=== PATIENT | female | born 1950 | race Caucasian/White ===

== ENCOUNTER 2023-10-05 12:41 | Emergency (ER) | payer OTHER, SELFPAY ==
[2023-10-05] VITALS (17 sets, daily range): BP systolic 122–153; BP diastolic 58–66; PULSE 71–92; RESP 10–21; TEMP 36.6–37; O2SAT 93–100
--- NOTE | 2023-10-05 12:52 | ED_ITS ---
HPI - General Adult General Chief complaint: Weakness Stated complaint: weakness Time Seen by Provider: 10/05/23 12:50 Source: patient, EMS, RN notes reviewed and old records reviewed Mode of arrival: EMS Limitations: no limitations History of Present Illness HPI narrative: 72-year-old female history of COPD, obesity, migraine, mood disorder on an aspirin daily presents with complaint of multiple falls in the past 2 weeks, weakness and decreased appetite. Patient reportedly had several falls in the past 2 weeks unclear if these are mechanical versus other causes but medics note most recent was last night reported to be from weakness. Was witnessed and patient did not hit her head at least in the most recent fall. Patient herself can tell me her name she denies any pain. Denies headaches, no vision changes, no neck or back pain, denies any chest pain or shortness of breath. Denies any nausea or vomiting. States she has not eat in the last 4 5 days. States she has just not interested. States she has had bowel movements that has been formed, denies any black or bloody stools. Denies any urinary symptoms. States she does feel generally weak. Has difficulty lifting her right arm and leg but states this is chronic for her. Patient does indicate she uses a CPAP at night states she has been using it regularly. Reported allergy to Benadryl. Patient lives at [facility]. She had a lift assist last night but did not wish to be transported. Was transported today at the request of her physician for evaluation. Related Data Home Medications Medication Instructions Recorded Confirmed acetaminophen 300 mg-codeine 30 mg 1 - 2 tab PO Q8H PRN Pain (Scale 10/05/23 10/05/23 tablet Score 7-10) acetaminophen 500 mg capsule 1,000 mg PO Q8HR 10/05/23 10/05/23 albuterol sulfate 90 mcg/actuation 2 puff inhalation Q4-6H PRN 10/05/23 10/05/23 aerosol inhaler (ProAir HFA) Shortness Of Breath aspirin 81 mg capsule 81 mg PO DAILY 10/05/23 10/05/23 buspirone 15 mg tablet 15 mg PO BID 10/05/23 10/05/23 cholecalciferol (vitamin D3) 25 25 mcg PO QAM 10/05/23 10/05/23 mcg (1,000 unit) capsule (Vitamin D3) divalproex 500 mg tablet,delayed 1,000 mg PO BEDTIME 10/05/23 10/05/23 release divalproex 500 mg tablet,extended 500 mg PO QAM 10/05/23 10/05/23 release 24 hr ferrous gluconate 324 mg (36 mg 324 mg PO DAILY 10/05/23 10/05/23 iron) tablet gabapentin 100 mg tablet 200 mg PO BID 10/05/23 10/05/23 ibuprofen 800 mg tablet 800 mg PO Q6H PRN Pain (Scale 10/05/23 10/05/23 Score 4-6) levothyroxine 100 mcg capsule 100 mcg PO DAILY 10/05/23 10/05/23 magnesium oxide 400 mg PO DAILY 10/05/23 10/05/23 ondansetron HCl 4 mg tablet 4 mg PO Q8H PRN nausea/vomiting 10/05/23 10/05/23 tiotropium bromide 18 mcg capsule 1 cap inhalation BEDTIME 10/05/23 10/05/23 with inhalation device (Spiriva with HandiHaler) triamcinolone acetonide 0.1 % 1 applic topical BID 10/05/23 10/05/23 topical cream venlafaxine 150 mg tablet,extended 150 mg PO DAILY 10/05/23 10/05/23 release 24 hr Allergies Allergy/AdvReac Type Severity Reaction Status Date / Time diphenhydramine Allergy Unknown Verified 10/05/23 13:10 Review of Systems Review of Systems ROS Unobtainable: All systems reviewed & are unremarkable except as noted in HPI and below Patient History Medical History (Updated 10/05/23 @ 14:55 by Corin Johnson DO) MCC (current) use of aspirin Unspecified convulsions Myalgia Seasonal allergic rhinitis Hypertensive heart disease without heart failure Insomnia Migraine Anxiety disorder Unspecified mood [affective] disorder Major depressive disorder Vitamin D deficiency Vitamin B deficiency Epilepsy Bipolar disorder Morbid obesity due to excess calories Oxygen dependent COPD (chronic obstructive pulmonary disease) Social History Smoking Status: Unknown if ever smoked Exam Narrative Exam Narrative: GEN: Obese, pale elderly appearing female, alert and oriented, patient appears to be in mild distress. HEENT: Atraumatic, pupils are equal round reactive to light, extraocular movements are intact, conjunctiva pale bilaterally, nares are clear, there is no conjunctival pallor. Throat is clear without any exudates, erythema, tonsillar enlargement or uvular deviation HEART: Regular rate and rhythm without murmur, clicks, rubs. Pulses are equal in upper and lower extremities, patient has some edema bilateral lower extremities. LUNGS:Lungs clear to auscultation, no wheezes, rales, crackles, chest moves symmetrically, no tachypnea or accessory muscle use ABD:bowel sounds normal, soft, non-tender, no guarding, rebound, rigidity, no masses noted, no hepatosplenomegaly :No CVA tenderness MSCL: Non-tender, patient has a weakness on the right upper extremity and lower extremity. Patient notes she has had injuries to her right shoulder making it difficult for her to elevate. She states right lower extremity also is generally weak. NEURO:CN 2-12 intact, sensation normal. SKIN: Patient has scabs on her anterior abdomen without any signs of erythema drainage or foul odor. Initial Vital Signs Initial Vital Signs: Vital Signs Pulse Rate 74 10/05/23 12:45 Pulse Oximetry 97 10/05/23 12:45 Course Orders Ordered: ED Orders 10/05/23 12:50 CT head/brain wo con Stat XR chest 1V Stat Respiratory Panel (Film Array) Stat ABG [Arterial Blood Gas] STAT EKG-12 Lead Stat 10/05/23 12:54 CT cervical spine wo con Stat 10/05/23 13:21 Acetaminophen Stat Complete Blood Count AUTO DIFF Stat Comprehensive Metabolic Panel Stat Lactate (Lactic Acid) Stat Lipase Stat NT-proBNP (BNP-Adult 18+) Stat Procalcitonin Stat Troponin & CK Cardiac Panel Stat Valproic Acid (Depakene) Total Stat 10/05/23 13:52 Urinalysis and Microscopic Stat 10/05/23 14:05 Blood Culture Stat Vital Signs Vital signs: Vital Signs - 8 hr 10/05/23 12:45 10/05/23 12:47 10/05/23 12:47 Temperature Pulse Rate 74 81 Respiratory Rate 13 Blood Pressure 127/58 L Pulse Oximetry 97 95 Oxygen Delivery Method Oxygen Flow Rate 10/05/23 12:50 10/05/23 13:00 10/05/23 13:00 Temperature 98.6 F Pulse Rate 75 75 Respiratory Rate 10 L Blood Pressure 127/58 L 137/61 Pulse Oximetry 99 99 Oxygen Delivery Method Nasal Cannula Oxygen Flow Rate 2 2 10/05/23 14:00 10/05/23 14:09 10/05/23 14:09 Temperature Pulse Rate 71 75 Respiratory Rate 12 11 L Blood Pressure 130/58 L Pulse Oximetry 97 96 Oxygen Delivery Method Oxygen Flow Rate 10/05/23 14:30 10/05/23 14:31 10/05/23 14:31 Temperature Pulse Rate 77 77 Respiratory Rate 12 Blood Pressure 153/64 H Pulse Oximetry 100 100 Oxygen Delivery Method Oxygen Flow Rate 10/05/23 15:00 10/05/23 15:01 10/05/23 15:01 Temperature Pulse Rate 77 77 Respiratory Rate 13 Blood Pressure 143/63 H Pulse Oximetry 99 100 Oxygen Delivery Method Oxygen Flow Rate 10/05/23 15:30 10/05/23 15:31 10/05/23 15:31 Temperature Pulse Rate 87 83 Respiratory Rate 17 14 Blood Pressure 146/66 H Pulse Oximetry 93 Oxygen Delivery Method Oxygen Flow Rate 10/05/23 16:00 10/05/23 16:01 10/05/23 16:01 Temperature Pulse Rate 86 84 Respiratory Rate 13 21 Blood Pressure 141/60 H Pulse Oximetry Oxygen Delivery Method Oxygen Flow Rate 10/05/23 16:30 10/05/23 16:31 10/05/23 16:31 Temperature Pulse Rate 90 90 Respiratory Rate 13 15 Blood Pressure 122/60 Pulse Oximetry 97 98 Oxygen Delivery Method Oxygen Flow Rate 10/05/23 16:39 Temperature 98 F Pulse Rate 92 H Respiratory Rate 20 Blood Pressure 122/60 Pulse Oximetry 98 Oxygen Delivery Method Nasal Cannula Oxygen Flow Rate 2.5 Medical Decision Making Lab Data 10/05/23 13:21 10/05/23 13:21 Labs: Lab Results 10/05/23 10/05/23 10/05/23 Range/Units 12:50 13:17 13:21 WBC 8.1 (4.5-11.0) X10^3/uL RBC 4.50 (4.0-5.2) X10^6/uL Hgb 8.9 L (12.0-16.0) g/dL Hct 30.2 L (36-46) % MCV 67.0 L (80-100) fL MCH 19.8 L (26-34) PG MCHC 29.6 L (30-36) % RDW 23.6 H (11.6-14.8) % Plt Count 666 H (150-400) X10^3/uL Neut % (Auto) Not Reportable Lymph % (Auto) Not Reportable [place] % (Auto) Not Reportable Eos % (Auto) Not Reportable Baso % (Auto) Not Reportable Lymph # (Auto) Not Reportable [place] # (Auto) Not Reportable Baso # (Auto) Not Reportable Total Counted 100 Seg Neutrophils % 53.0 (38-70) % Lymphocytes % (Manual) 33.0 (25-45) % Monocytes % (Manual) 11.0 (2-11) % Eosinophils % (Manual) 3.0 (2-4) % Neutrophils # (Manual) 4293 (5471-3112) /uL RBC Morphology See below Hypochromasia 1+ H Anisocytosis 3+ H Microcytosis 2+ H ABG Sample Site Left radial ABG pH 7.35 (7.35-7.45) ABG pCO2 48.2 H (35-45) mmHg ABG pO2 91 (80-100) mmHg ABG HCO3 26 (23-27) mmol/L ABG Total CO2 27 (23-27) mmol/L ABG O2 Saturation 97 (95-100) % ABG Base Excess 0.3 (-2-3) mmol/L Noe Test Positive Sodium 140 (137-145) mmol/L Potassium 4.2 (3.4-5.1) mmol/L Chloride 104 (98-107) mmol/L Carbon Dioxide 25 (22-32) mmol/L BUN 24 H (7-17) mg/dL Creatinine 0.66 (0.52-1.04) mg/dL Estimated GFR > 60 (>60) mL/min BUN/Creatinine Ratio 36.4 H (6-22) Glucose 88 (80-110) mg/dL Lactate 0.6 L (0.7-2.1) mmol/L Calcium 8.5 (8.4-10.2) mg/dL Total Bilirubin 0.3 (0.2-1.3) mg/dL AST 21 (14-36) IU/L ALT 9 (<35) IU/L Alkaline Phosphatase 74 (38-126) U/L Total Creatine Kinase 33 (30-135) U/L Troponin I < 0.012 (0.01-0.034) ng/mL NT-Pro-B Natriuret Pep 195 H (<125) pg/mL Total Protein 5.6 L (6.3-8.2) g/dL Albumin 2.7 L (3.5-5.0) g/dL Globulin 2.9 (1.7-4.1) g/dL Albumin/Globulin Ratio 0.9 L (1.0-2.8) Lipase 22 L (23-300) U/L Procalcitonin 0.042 (<0.5) ng/mL Urine Color Urine Appearance Urine pH (4.5-8.0) Ur Specific M[place] (1.000-1.035) Urine Protein (Negative) Urine Glucose (UA) (Negative) g/dL Urine Ketones (NEGATIVE) Urine Occult Blood (Negative) Urine Nitrate (Negative) Urine Bilirubin (NEGATIVE) Urine Urobilinogen (0.2) E.U./dL Ur Leukocyte Esterase (NEGATIVE) Urine RBC (0-5/HPF) Urine WBC (0-5/HPF) Ur Squamous Epith Cells (0-5/HPF) Urine Bacteria (None) Hyaline Casts (None) Ur Culture Indicated? Vol Urine Centrifuged Acetaminophen 10 (10-30) ug/mL Chlamy pneumoniae PCR Not detected (Not Detect) Adenovirus (PCR) Not detected (Not Detect) B.parapertussis DNA PCR Not detected (Not Detecte) Coronavirus OC43 (PCR) Not detected (Not Detect) Coronavirus HKU1 (PCR) Not detected (Not Detect) Coronavirus 229E (PCR) Not detected (Not Detect) SARS-CoV-2 (PCR) Not detected (Not Detecte) Coronavirus NL63 (PCR) Not detected (Not Detect) Human Metapneumovir PCR Not detected (Not Detect) Influenza Type A (PCR) Not detected (Not Detect) Influenza Type B (PCR) Not detected (Not Detect) M. pneumoniae (PCR) Not detected (Not Detect) Parainfluenza 1 (PCR) Not detected (Not Detect) Parainfluenza 2 (PCR) Not detected (Not Detect) Parainfluenza 3 (PCR) Not detected (Not Detect) Parainfluenza 4 (PCR) Not detected (Not Detect) RSV (PCR) Not detected (Not Detect) Entero/Rhino (PCR) Not detected (Not Detect) 10/05/23 Range/Units 13:52 WBC (4.5-11.0) X10^3/uL RBC (4.0-5.2) X10^6/uL Hgb (12.0-16.0) g/dL Hct (36-46) % MCV (80-100) fL MCH (26-34) PG MCHC (30-36) % RDW (11.6-14.8) % Plt Count (150-400) X10^3/uL Neut % (Auto) Lymph % (Auto) [place] % (Auto) Eos % (Auto) Baso % (Auto) Lymph # (Auto) [place] # (Auto) Baso # (Auto) Total Counted Seg Neutrophils % (38-70) % Lymphocytes % (Manual) (25-45) % Monocytes % (Manual) (2-11) % Eosinophils % (Manual) (2-4) % Neutrophils # (Manual) (6167-4776) /uL RBC Morphology Hypochromasia Anisocytosis Microcytosis ABG Sample Site ABG pH (7.35-7.45) ABG pCO2 (35-45) mmHg ABG pO2 (80-100) mmHg ABG HCO3 (23-27) mmol/L ABG Total CO2 (23-27) mmol/L ABG O2 Saturation (95-100) % ABG Base Excess (-2-3) mmol/L Noe Test Sodium (137-145) mmol/L Potassium (3.4-5.1) mmol/L Chloride (98-107) mmol/L Carbon Dioxide (22-32) mmol/L BUN (7-17) mg/dL Creatinine (0.52-1.04) mg/dL Estimated GFR (>60) mL/min BUN/Creatinine Ratio (6-22) Glucose (80-110) mg/dL Lactate (0.7-2.1) mmol/L Calcium (8.4-10.2) mg/dL Total Bilirubin (0.2-1.3) mg/dL AST (14-36) IU/L ALT (<35) IU/L Alkaline Phosphatase (38-126) U/L Total Creatine Kinase (30-135) U/L Troponin I (0.01-0.034) ng/mL NT-Pro-B Natriuret Pep (<125) pg/mL Total Protein (6.3-8.2) g/dL Albumin (3.5-5.0) g/dL Globulin (1.7-4.1) g/dL Albumin/Globulin Ratio (1.0-2.8) Lipase (23-300) U/L Procalcitonin (<0.5) ng/mL Urine Color Yellow Urine Appearance Clear Urine pH 5.5 (4.5-8.0) Ur Specific [place] 1.020 (1.000-1.035) Urine Protein Negative (Negative) Urine Glucose (UA) Negative (Negative) g/dL Urine Ketones 1+ H (NEGATIVE) Urine Occult Blood Negative (Negative) Urine Nitrate Negative (Negative) Urine Bilirubin Negative (NEGATIVE) Urine Urobilinogen 0.2 (0.2) E.U./dL Ur Leukocyte Esterase Negative (NEGATIVE) Urine RBC 0-1/hpf (0-5/HPF) Urine WBC 0-1/hpf (0-5/HPF) Ur Squamous Epith Cells 0-1 /hpf (0-5/HPF) Urine Bacteria None seen (None) Hyaline Casts 1-5/lpf (None) Ur Culture Indicated? Cult not indicated Vol Urine Centrifuged 10ml (spun) Acetaminophen (10-30) ug/mL Chlamy pneumoniae PCR (Not Detect) Adenovirus (PCR) (Not Detect) B.parapertussis DNA PCR (Not Detecte) Coronavirus OC43 (PCR) (Not Detect) Coronavirus HKU1 (PCR) (Not Detect) Coronavirus 229E (PCR) (Not Detect) SARS-CoV-2 (PCR) (Not Detecte) Coronavirus NL63 (PCR) (Not Detect) Human Metapneumovir PCR (Not Detect) Influenza Type A (PCR) (Not Detect) Influenza Type B (PCR) (Not Detect) M. pneumoniae (PCR) (Not Detect) Parainfluenza 1 (PCR) (Not Detect) Parainfluenza 2 (PCR) (Not Detect) Parainfluenza 3 (PCR) (Not Detect) Parainfluenza 4 (PCR) (Not Detect) RSV (PCR) (Not Detect) Entero/Rhino (PCR) (Not Detect) Imaging Data Chest x-ray: Radiologist's Impression: [address] [address] XRay Report Signed Patient: Kimmie Dunn MR#: [id number] : 1950 Acct:[id number] Age/Sex: 72 / F Date of Service: 10/05/23 Loc: ED Accession Number: [id number] Procedure: XR chest 1V Ordering Provider: Corin Johnson D.O. PROCEDURE: XR CHEST 1V INDICATIONS: weakness TECHNIQUE: One view of the chest was acquired. COMPARISON: None. FINDINGS: Surgical changes and devices: Bilateral chest wall surgical clips. Lungs and pleura: Low lung volumes. Prominent interstitial markings. No pleural effusions or pneumothorax. Mediastinum: Mediastinal contours appear normal. Heart size is enlarged. Bones and chest wall: No suspicious bony lesions. Overlying soft tissues appear unremarkable. IMPRESSION: Cardiomegaly with prominent interstitial markings. Recommend correlation for pulmonary edema. Dictated by: Santosh Gonzalez M.D. on 10/05/2023 at 14:26 Approved by: Santosh Gonzalez M.D. on 10/05/2023 at 14:27 CT scan - head: Radiologist's Impression: Close Cervical Spine CT (Signed) Sher Dozier - 10/05/[address] (Signed) Brendon Arreguin - 10/05/23 Chest X-Ray (Signed) Santosh Gonzalez - 10/05/23 Launch?[place] [address] CT Scan Report Signed Patient: Kimmie Dunn MR#: [id number] : 1950 Acct:[id number] Age/Sex: 72 / F Date of Service: 10/05/23 Loc: ED Accession Number: [id number] Procedure: CT head/brain wo con Ordering Provider: Corin Johnson D.O. PROCEDURE: CT HEAD/BRAIN WO CON INDICATIONS: weakness, multiple falls in past 2 weeks. TECHNIQUE: Noncontrast 4.5 mm thick angled axial sections acquired from the foramen magnum to the vertex, with coronal and sagittal reformats. For radiation dose reduction, the following was used: automated exposure control, adjustment of mA and/or kV according to patient size. COMPARISON: None. FINDINGS: Image quality: Diagnostic. CSF spaces: Basal cisterns are patent. No extra-axial fluid collections. The ventricles are symmetric in size and shape. Brain: No intracranial bleeds or masses. There is cerebral volume loss for age, with resultant ventricular and sulcal prominence. There are periventricular and deep white matter chronic small vessel ischemic changes. There is intracranial internal carotid artery atherosclerosis. Skull and face: Calvarium and visualized facial bones appear intact, without suspicious lesions. Sinuses: Visualized sinuses and mastoids are clear. IMPRESSION: No acute intracranial pathology. Dictated by: Brendon Arreguin M.D. on 10/05/2023 at 13:48 Approved by: Brendon Arreguin M.D. on 10/05/2023 at 13:49 CT - cervical spine: Radiologist's Impression: Close Cervical Spine CT (Signed) Sher Dozier - 10/05/[address] (Signed) Brendon Arreguin - 10/05/23 Chest X-Ray (Signed) Santosh Gonzalez - 10/05/23 Launch?[place] [address] CT Scan Report Signed Patient: Kimmie Dunn MR#: [id number] : 1950 Acct:[id number] Age/Sex: 72 / F Date of Service: 10/05/23 Loc: ED Accession Number: [id number] Procedure: CT cervical spine wo con Ordering Provider: Corin Johnson D.O. PROCEDURE: CT CERVICAL SPINE WO CON INDICATIONS: weakness, multiple falls TECHNIQUE: Noncontrast 3 mm thick sections acquired from the skull base to the T4 level. Sagittal and coronal reformats were then constructed. For radiation dose reduction, the following was used: automated exposure control, adjustment of mA and/or kV according to patient size. COMPARISON: [facility], CR, XR CHEST 1V, 10/05/2023, 13:27. [facility], CT, CT HEAD/BRAIN WO CON, 10/05/2023, 12:55. FINDINGS: Image quality: Excellent. Bones: No fractures or dislocations. Visualized superior ribs are intact. Focal degenerative change is seen involving the C1-C2 interface anteriorly. There is moderate to severe disc space narrowing seen at C5-C6, with at least moderate disc space narrowing seen at C4-C5 and C6-C7. Minimal anterolisthesis can be seen at C4- C5. Milder degenerative changes are seen elsewhere. Soft tissues: Prevertebral soft tissues are normal in thickness. No paravertebral hematomas. No apical pneumothoraces. IMPRESSION: No displaced fracture or traumatic subluxation. Cervical spine degenerative changes are seen, which are worst at C5-C6. Dictated by: Sher Dozier M.D. on 10/05/2023 at 12:52 Approved by: Sher Dozier M.D. on 10/05/2023 at 12:53 ECG Data Attestation: I personally reviewed and interpreted this ECG as follows: Prior ECG tracings: not available for review Interpretation: Normal sinus rhythm rate of 72 [place] 194 QRS of 90 QTC [address] elevation noted. Some nonspecific change. No prior for comparison. MDM Narrative Medical decision making narrative: Labs show white count 8.1 hemoglobin of 8.9, patient has a microcytosis, platelets 666. Sodium is 140 potassium 4.2 chloride 104 CO2 is 25 BUN 24 with a creatinine of 0.66 glucose is 88, lactate is 0.6 calcium is 8.5 bilirubin is 0.3 with a AST 21 ALT 9 alk-phos is 74 total CK 33 troponin less than 0.012 with a BNP of 195. Patient has a low protein albumin. Lipase is negative at 22. Procalcitonin 0.042. Tylenol less than 10. Valproic acid level is Head CT is negative for acute change. CT cervical spine shows no displaced fracture or subluxation cervical degenerative spinal changes worse at C5-6. Chest x-ray, patient was cardiomegaly without prominent interstitial markings. ABG shows pH of 7.35 pCO2 48 PO2 of 91 CO2 of 27 on patient's home O2 of 2.5 L. UA is positive for ketones, negative for nitrates and leuks, urine micro Respiratory panel is negative. Depakote level is pending this is a send out. Patient's vitals are overall appropriate patient is on her home O2 dose. She does not appear pale but hemoglobin 8.9 and hemodynamically stable. Patient's hemoglobin is 8.9 today, patient has prior labs from 09/23/2023 obtained from out patient facility which show hemoglobin of 8.9 with hematocrit of 32 and white count of 5.4. Patient appears to chronic anemia. Patient does have blood cultures pending but has appropriate vitals, otherwise despite describing being weak no other clear signs of infection or other sources, no significant electrolyte abnormalities. Patient otherwise appears stable and appropriate for discharge back to her facility. Discharge Plan Departure Patient Disposition: Home Clinical Impression: Weakness Activity Restrictions/Additional Instructions: Follow up with your physician, your labs show that you are anemic but your hemoglobin is the same as from 09/23/2023. I would recommend you discuss your goals of care with your physician, you have indicated today that you do not wish for intubation but your POLST form indicates that you do with for this to be performed as needed. I would recommend avoiding sedating medications in the interim. Labs, ABG, urinalysis respiratory panel showed no acute change. Imaging shows some cardiomegaly but no other acute changes Your head CT and C-spine are both negative for acute changes as well. Please return for new or worsening symptoms, fevers, new changes to mental status, new chest pain or shortness of breath, persistent vomiting, difficulty with urination, swelling of extremities or other new or concerning changes. Prescriptions: No Action ibuprofen 800 mg Tablet 800 mg PO Q6H PRN (Reason: Pain (Scale Score 4-6)) ondansetron HCl [Zofran] 4 mg Tablet 4 mg PO Q8H PRN (Reason: nausea/vomiting) acetaminophen-codeine [Tylenol-Codeine #3] 300-30 mg Tablet 1 - 2 tab PO Q8H PRN (Reason: Pain (Scale Score 7-10)) divalproex 500 mg Tablet,Delayed Release (Dr/Ec) 1,000 mg PO BEDTIME triamcinolone acetonide 0.1 % Cream 1 applic TOPICAL BID Rx Instructions: Left thigh bid divalproex 500 mg Tablet Extended Release 24 Hr 500 mg PO QAM albuterol sulfate [ProAir HFA] 90 mcg/actuation Hfa Aerosol Inhaler 2 puff INHALATION Q4-6H PRN (Reason: Shortness Of Breath) acetaminophen [Tylenol Extra Strength] 500 mg Capsule 1,000 mg PO Q8HR buspirone 15 mg Tablet 15 mg PO BID cholecalciferol (vitamin D3) [Vitamin D3] 25 mcg (1,000 unit) Capsule 25 mcg PO QAM tiotropium bromide [Spiriva with HandiHaler] 18 mcg Capsule, W/Inhalation Device 1 cap INHALATION BEDTIME Rx Instructions: puncture 1 cap using device; one dose = 2 inhalations gabapentin 100 mg Tablet 200 mg PO BID ferrous gluconate 324 mg (36 mg iron) Tablet 324 mg PO DAILY Rx Instructions: started 09/25/23 venlafaxine 150 mg Tablet Extended Release 24hr 150 mg PO DAILY levothyroxine 100 mcg Capsule 100 mcg PO DAILY magnesium oxide 400 mg magnesium Capsule 400 mg PO DAILY aspirin 81 mg Capsule 81 mg PO DAILY Stand Alone Forms: Patient Portal/API
[2023-10-05 13:21] LABS: Allen Test for ABG Passed? Positive; Base Excess ABG 0.3 mmol/L (-2-3); Blood Gas Collection Site Left Radial; HCO3 ABG 26 mmol/L (23-27); Oxygen Saturation ABG 97 % (95-100); PCO2 ABG 48.2 mmHg (35-45); PO2 ABG 91 mmHg (80-100); TCO2 ABG 27 mmol/L (23-27); pH ABG 7.35 (7.35-7.45)
[2023-10-05 13:48] LABS: Alanine Aminotransferase 9 IU/L (<35); Albumin 2.7 g/dL (3.5-5.0); Albumin Globulin Ratio 0.9 (1.0-2.8); Alkaline Phosphatase 74 U/L (38-126); Aspartate Aminotransferase 21 IU/L (14-36); BUN Creatinine Ratio 36.4 (6-22); Bilirubin Total 0.3 mg/dL (0.2-1.3); Blood Urea Nitrogen 24 mg/dL (7-17); Calcium 8.5 mg/dL (8.4-10.2); Carbon Dioxide 25 mmol/L (22-32); Chloride 104 mmol/L (98-107); Creatine Kinase 33 U/L (30-135); Estimated Glomerular Filt Rate > 60 mL/min (>60); Globulin 2.9 g/dL (1.7-4.1); Glucose 88 mg/dL (80-110); HEMOLYSIS < 15 (0-50); Lipase 22 U/L (23-300); Potassium 4.2 mmol/L (3.4-5.1); Sodium 140 mmol/L (137-145); Total Protein 5.6 g/dL (6.3-8.2)
[2023-10-05 13:49] LABS: Lactate (Lactic Acid) 0.6 mmol/L (0.7-2.1)
[2023-10-05 13:57] LABS: Add Manual Diff / Slide Review YES; Hematocrit 30.2 % (36-46); Hemoglobin 8.9 g/dL (12.0-16.0); Mean Corpuscular HGB Conc 29.6 % (30-36); Mean Corpuscular Hemoglobin 19.8 PG (26-34); Platelet Count 666 X10^3/uL (150-400); Red Cell Distribution Width 23.6 % (11.6-14.8); White Blood Cell Count 8.1 X10^3/uL (4.5-11.0)
--- NOTE | 2023-10-05 13:58 | EKG_ITS ---
[address] [address] Test Date: 2023-10-05 Pat Name: Kimmie Dunn Department: [facility] Room: Gender: Female Drafter Electrical: VENUS : 1950 Requested By: Order Number: [id number] Reading MD: Noe Zelaya Measurements Intervals [place] Rate: 72 P: 69 [place]: 194 QRS: -17 QRSD: 90 T: 145 QT: 406 QTc: 444 Interpretive Statements Normal sinus rhythm Anterior infarct , age undetermined Electronically Signed On 10-05-2023 18:55:26 PDT by Noe Zelaya
[2023-10-05 14:00] LABS: NT-proBNP (BNP-Adult 18+) 195 pg/mL (<125); Troponin I < 0.012 ng/mL (0.01-0.034)
[2023-10-05 14:01] LABS: Acetaminophen 10 ug/mL (10-30)
[2023-10-05 14:05] LABS: Procalcitonin 0.042 ng/mL (<0.5)
[2023-10-05 14:14] LABS: Adenovirus Not Detected (Not Detect); B. parapertussis Not Detected (Not Detecte); Bordetella pertussis Not Detected (Not Detect); Chlamydophila pneumoniae Not Detected (Not Detect); Coronavirus 229E Not Detected (Not Detect); Coronavirus HKU1 Not Detected (Not Detect); Coronavirus NL 63 Not Detected (Not Detect); Coronavirus OC43 Not Detected (Not Detect); Human Metapneumovirus Not Detected (Not Detect); Human Rhinovirus/Enterovirus Not Detected (Not Detect); Influenza A Not Detected (Not Detect); Influenza B Not Detected (Not Detect); Mycoplasma pneumoniae Not Detected (Not Detect); Parainfluenza Virus 1 Not Detected (Not Detect); Parainfluenza Virus 2 Not Detected (Not Detect); Parainfluenza Virus 3 Not Detected (Not Detect); Parainfluenza Virus 4 Not Detected (Not Detect); Respiratory Syncytial Virus Not Detected (Not Detect); SARS- CoV-2 Not Detected (Not Detecte)
[2023-10-05 14:17] LABS: Appearance Urine UA CLEAR; Bilirubin Urine UA NEGATIVE (NEGATIVE); Color Urine UA YELLOW; Glucose Urine UA NEGATIVE (Negative); Ketones Urine UA 1+ (NEGATIVE); Leukocyte Esterase Urine UA NEGATIVE (NEGATIVE); Nitrite Urine UA NEGATIVE (Negative); Occult Blood Urine UA NEGATIVE (Negative); Protein Urine UA NEGATIVE (Negative); Urobilinogen Urine UA 0.2 E.U./dL (0.2)
[2023-10-05 14:20] LABS: pH Urine UA 5.5 (4.5-8.0)
[2023-10-05 14:29] LABS: Bacteria Urine None Seen; Culture Indicated Urine Cult Not Indicated; Hyaline Casts Urine 1-5/LPF; RBC Urine 0-1/HPF (0-5/HPF); Squamous Epithelial Cell Urine 0-1 /HPF (0-5/HPF); Urine Volume 10mL (spun); WBC Urine 0-1/HPF (0-5/HPF)
[2023-10-05 14:55] LABS: Neutrophils Absolute Manual 4293 /uL (3000-5900); Total Cells Counted 100
[2023-10-05 14:56] LABS: Anisocytosis 3+; Microcytosis 2+
[2023-10-05 14:57] LABS: Hypochromasia 1+
[2023-10-06 23:36] LABS: Valproic Acid (Depakene) Total 34 ug/mL (50-100)
== END 2023-10-05 16:40 | disposition home or self-care (01) ==
PROVIDERS: Emergency Provider Emergency Medicine
DX: R53.1 Weakness (principal); R29.6 Repeated falls; D64.9 Anemia, unspecified; R79.89 Other specified abnormal findings of blood chemistry; Z79.899 Other long term (current) drug therapy; Z11.52 Encounter for screening for COVID-19
CPT/HCPCS: 36415; 36600; 70450; 71045; 72125; 80053; 80164; 80329; 81001; 82550; 82805; 83605; 83690; 83880; 84145; 84484; 85007; 85025; 87040; 87633; 93005; 99284; G0480

== ENCOUNTER 2023-10-22 11:57 | Inpatient (IN) | payer OTHER, MEDICAID, SELFPAY ==
[2023-10-22] VITALS (20 sets, daily range): BP systolic 94–163; BP diastolic 59–80; PULSE 94–105; RESP 11–24; TEMP 36.4–37.8; O2SAT 93–100; BMI 36.8
--- NOTE | 2023-10-22 12:12 | DI.RAD.S_ITS ---
PROCEDURE: XR CHEST 1V INDICATIONS: altered mental status TECHNIQUE: One view of the chest was acquired. COMPARISON: [facility], CR, XR CHEST 1V, 10/05/2023, 13:27. FINDINGS: Surgical changes and devices: Surgical clips project over the thorax. Lungs and pleura: Lungs are clear. No pleural effusions or pneumothorax. Mediastinum: Mediastinal contours appear normal. Heart size is enlarged. Bones and chest wall: No suspicious bony lesions. Overlying soft tissues appear unremarkable. IMPRESSION: No acute cardiopulmonary abnormality is seen. Dictated by: Roberto Gasca M.D. on 10/22/2023 at 12:37 Approved by: Roberto Gasca M.D. on 10/22/2023 at 12:38
--- NOTE | 2023-10-22 12:30 | ED.AMS ---
HPI - Altered Mental Status General Chief Complaint: Altered Mental Status Stated Complaint: Decreased LOC Time Seen by Provider: 10/22/23 12:01 Source: EMS Mode of arrival: EMS History of Present Illness HPI narrative: Patient 72-year-old female history of COPD on home O2 obesity migraine mood disorder on aspirin daily presents today with altered mental status. She is found to have a temperature of 100.1? and appears very pale. She was seen and evaluated here on October 04 for multiple falls and weakness. She would full workup at that time ultimately no admission diagnosis made and sent home. Today she really has pain all over appears pale denies rectal bleeding. No significant abdominal pain chest pain or shortness of breath. Related Data Home Medications Medication Instructions Recorded Confirmed acetaminophen 300 mg-codeine 30 mg 1 - 2 tab PO Q8H PRN Pain (Scale 10/05/23 10/05/23 tablet Score 7-10) acetaminophen 500 mg capsule 1,000 mg PO Q8HR 10/05/23 10/05/23 albuterol sulfate 90 mcg/actuation 2 puff inhalation Q4-6H PRN 10/05/23 10/05/23 aerosol inhaler (ProAir HFA) Shortness Of Breath aspirin 81 mg capsule 81 mg PO DAILY 10/05/23 10/05/23 buspirone 15 mg tablet 15 mg PO BID 10/05/23 10/05/23 cholecalciferol (vitamin D3) 25 25 mcg PO QAM 10/05/23 10/05/23 mcg (1,000 unit) capsule (Vitamin D3) divalproex 500 mg tablet,delayed 1,000 mg PO BEDTIME 10/05/23 10/05/23 release divalproex 500 mg tablet,extended 500 mg PO QAM 10/05/23 10/05/23 release 24 hr ferrous gluconate 324 mg (36 mg 324 mg PO DAILY 10/05/23 10/05/23 iron) tablet gabapentin 100 mg tablet 200 mg PO BID 10/05/23 10/05/23 ibuprofen 800 mg tablet 800 mg PO Q6H PRN Pain (Scale 10/05/23 10/05/23 Score 4-6) levothyroxine 100 mcg capsule 100 mcg PO DAILY 10/05/23 10/05/23 magnesium oxide 400 mg PO DAILY 10/05/23 10/05/23 ondansetron HCl 4 mg tablet 4 mg PO Q8H PRN nausea/vomiting 10/05/23 10/05/23 tiotropium bromide 18 mcg capsule 1 cap inhalation BEDTIME 10/05/23 10/05/23 with inhalation device (Spiriva with HandiHaler) triamcinolone acetonide 0.1 % 1 applic topical BID 10/05/23 10/05/23 topical cream venlafaxine 150 mg tablet,extended 150 mg PO DAILY 10/05/23 10/05/23 release 24 hr Allergies Allergy/AdvReac Type Severity Reaction Status Date / Time diphenhydramine Allergy Unknown Verified 10/05/23 13:10 Patient History 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 Unspecified convulsions Myalgia Seasonal allergic rhinitis Hypertensive heart disease without heart failure Insomnia Migraine Anxiety disorder Unspecified mood [affective] disorder Major depressive disorder Vitamin D deficiency Vitamin B deficiency Epilepsy Bipolar disorder Morbid obesity due to excess calories Oxygen dependent COPD (chronic obstructive pulmonary disease) Social History Smoking Status: Unknown if ever smoked Smoking Status: Unknown if ever smoked alcohol intake frequency: other Substance Use Type: does not use Exam Initial Vital Signs Initial Vital Signs: Vital Signs Pulse Rate 99 H 10/22/23 12:03 Blood Pressure 123/71 10/22/23 12:03 Pulse Oximetry 99 10/22/23 12:03 GENERAL: Pale alert 72-year-old female and in no acute distress. HEENT: Head atraumatic,EOMI, pupils reactive, face symmetric, moist mucous membranes CARDIOVASCULAR: Regular rate and rhythm without murmurs, rubs or gallops. RESPIRATORY: Breath sounds equal bilaterally, no wheezes rales or rhonchi. ABDOMEN: Soft, mild tenderness no guarding no rebound EXTREMITIES: Normal range of motion, no clubbing or edema. Neurovascularly intact NEUROLOGICAL: Alert and oriented x4. Hand Paint Mixer strength equal SKIN: Warm, dry, no laceration, no petechiae, no rashes or lesions. Course Orders Ordered: ED Orders 10/22/23 12:12 XR chest 1V Stat EKG-12 Lead Stat 10/22/23 12:34 Respiratory Panel (Film Array) Stat 10/22/23 12:38 CT chest abd pel w con Stat CT head/brain wo con Stat 10/22/23 14:15 Ammonia (NH3) Stat Complete Blood Count AUTO DIFF Stat Comprehensive Metabolic Panel Stat Lactate (Lactic Acid) Stat Procalcitonin Stat 10/22/23 14:55 Blood Culture Stat 10/22/23 15:30 Ictotest Urine Stat Urinalysis and Microscopic Stat Urine Culture Stat Urine Drug Screen, Rapid Stat Acetaminophen (Acetaminophen 325 Mg Tablet) 650 mg PO Q6H PRN PRN Reason: Fever/Mild Pain (1-3) Last Admin: 10/22/23 18:59 Dose: 650 mg Documented By: BERONICA Hydrocodone Bitart/Acetaminophen (Hydrocodone/Acet 5/325 Tablet) 2 tab PO Q4H PRN PRN Reason: Pain, Severe (7-10) Heparin Sodium (Porcine) (Heparin 5,000 Unit/Ml Vial) 5,000 unit SUBCUT BID TONY Sodium Chloride (Normal Saline 0.9%) 1,000 mls @ 100 mls/hr IV CONT TONY Last Admin: 10/22/23 18:57 Dose: 100 mls/hr Documented By: BERONICA Ceftriaxone Sodium 1,000 mg/ (Sodium Chloride) 100 mls @ 200 mls/hr IV Q24H TONY Naloxone HCl (Naloxone 0.4 Mg/Ml Vial) 0.2 mg IV Q2MIN PRN PRN Reason: Opiate Reversal Ondansetron HCl (Ondansetron 4 Mg/2 Ml Inj) 4 mg IV Q8HR PRN PRN Reason: Nausea And Vomiting Sennosides (Sennosides 8.6 Mg Tablet) 17.2 mg PO BEDTIME TONY Discontinued Medications Ceftriaxone Sodium 1,000 mg/ (Sodium Chloride) 100 mls @ 200 mls/hr IV NOW ONE Stop: 10/22/23 16:50 Last Infusion: 10/22/23 17:45 Dose: Infused Documented By: Admin: 10/22/23 17:11 Dose: 200 mls/hr Documented By: DANILO Vital Signs Vital signs: Vital Signs - 8 hr 10/22/23 12:03 10/22/23 12:03 10/22/23 12:07 Temperature 100.1 F H Pulse Rate 99 H 100 H Respiratory Rate 24 Blood Pressure 123/71 123/71 Pulse Oximetry 99 98 Oxygen Delivery Method Nasal Cannula Oxygen Flow Rate 3 10/22/23 12:30 10/22/23 13:00 10/22/23 13:30 Temperature Pulse Rate 104 H 101 H 99 H Respiratory Rate 18 24 Blood Pressure Pulse Oximetry 98 Oxygen Delivery Method Nasal Cannula Oxygen Flow Rate 3 10/22/23 13:49 10/22/23 14:16 10/22/23 14:16 Temperature Pulse Rate 101 H Respiratory Rate 19 Blood Pressure 134/78 163/75 H Pulse Oximetry Oxygen Delivery Method Oxygen Flow Rate 10/22/23 14:42 10/22/23 15:00 10/22/23 15:00 Temperature Pulse Rate 100 H 98 H Respiratory Rate 21 Blood Pressure 143/78 H Pulse Oximetry 96 Oxygen Delivery Method Nasal Cannula Oxygen Flow Rate 3 10/22/23 15:30 10/22/23 15:31 10/22/23 15:31 Temperature Pulse Rate 105 H 102 H Respiratory Rate 22 12 Blood Pressure 94/62 Pulse Oximetry 96 93 Oxygen Delivery Method Nasal Cannula Oxygen Flow Rate 3 10/22/23 16:00 10/22/23 16:00 10/22/23 16:30 Temperature Pulse Rate 96 H 96 H Respiratory Rate 14 15 Blood Pressure 138/78 Pulse Oximetry 100 99 Oxygen Delivery Method Oxygen Flow Rate 10/22/23 16:30 10/22/23 17:00 10/22/23 17:00 Temperature Pulse Rate 94 H Respiratory Rate 15 Blood Pressure 135/79 139/67 Pulse Oximetry 100 Oxygen Delivery Method Nasal Cannula Oxygen Flow Rate 3 MDM - Altered Mental Status Lab Data 10/22/23 14:15 10/22/23 14:15 Labs: Lab Results 10/22/23 10/22/23 10/22/23 Range/Units 12:34 14:15 15:30 WBC 10.5 (4.5-11.0) X10^3/uL RBC 4.65 (4.0-5.2) X10^6/uL Hgb 9.7 L (12.0-16.0) g/dL Hct 32.8 L (36-46) % MCV 70.6 L (80-100) fL MCH 20.9 L (26-34) PG MCHC 29.7 L (30-36) % RDW 27.3 H (11.6-14.8) % Plt Count 321 (150-400) X10^3/uL Neut % (Auto) 63.5 (50-75) % Lymph % (Auto) 17.9 L (25-40) % [place] % (Auto) 17.5 H (3-14) % Eos % (Auto) 0.8 L (2-4) % Baso % (Auto) 0.3 (0-2) % Neut # (Auto) 6700 (8008-7007) /uL Lymph # (Auto) 1900 (1038-4623) /uL [place] # (Auto) 1800 H (0-900) /uL Eos # (Auto) 100 (0-450) /uL Baso # (Auto) 0 (0-100) /uL RBC Morphology See below Hypochromasia 1+ H Anisocytosis 3+ H Target Cells 2+ H Sodium 133 L (137-145) mmol/L Potassium 3.5 (3.4-5.1) mmol/L Chloride 100 (98-107) mmol/L Carbon Dioxide 31 (22-32) mmol/L BUN 16 (7-17) mg/dL Creatinine 0.53 (0.52-1.04) mg/dL Estimated GFR > 60 (>60) mL/min BUN/Creatinine Ratio 30.2 H (6-22) Glucose 101 (80-110) mg/dL Lactate 1.3 (0.7-2.1) mmol/L Calcium 8.1 L (8.4-10.2) mg/dL Total Bilirubin 0.4 (0.2-1.3) mg/dL AST 31 (14-36) IU/L ALT 17 (<35) IU/L Alkaline Phosphatase 90 (38-126) U/L Ammonia 27 (9-30) umol/L Total Protein 5.7 L (6.3-8.2) g/dL Albumin 2.5 L (3.5-5.0) g/dL Globulin 3.2 (1.7-4.1) g/dL Albumin/Globulin Ratio 0.8 L (1.0-2.8) Procalcitonin 0.053 (<0.5) ng/mL Urine Color Yellow Urine Appearance Sl cloudy Urine pH 6.5 (4.5-8.0) Ur Specific [place] 1.020 (1.000-1.035) Urine Protein Trace H (Negative) Urine Glucose (UA) Negative (Negative) g/dL Urine Ketones 1+ H (NEGATIVE) Urine Occult Blood Negative (Negative) Urine Nitrate Positive H (Negative) Urine Bilirubin 2+ H (NEGATIVE) Ur Bilirubin Confirm Negative (Negative) Urine Urobilinogen 4.0 H (0.2) E.U./dL Ur Leukocyte Esterase 1+ H (NEGATIVE) Urine RBC None seen (0-5/HPF) Urine WBC 30-100/hpf H (0-5/HPF) Ur Squamous Epith Cells None seen (0-5/HPF) Urine Bacteria Many (>30) H (None) Ur Culture Indicated? Specimen cultured Vol Urine Centrifuged 10ml (spun) U Opiates 300ng/mL cut Positive H (Negative) Ur Oxycodone Screen Negative (Negative) Urine Methadone Screen Negative (Negative) Ur Barbiturates Screen Negative (Negative) U Tricyclic Antidepress Positive H (Negative) Ur Phencyclidine Scrn Negative (Negative) Ur Amphetamines Screen Negative (Negative) U Methamphetamines Scrn Negative (Negative) Ur MDMA Scrn (Ecstasy) Negative (Negative) U Benzodiazepines Scrn Negative (Negative) Urine Cocaine Screen Negative (Negative) U Marijuana (THC) Screen Negative (Negative) Urine Specific [place] (Normal) Ur Creatinine (Normal) Chlamy pneumoniae PCR Not detected (Not Detect) Adenovirus (PCR) Not detected (Not Detect) B.parapertussis DNA PCR Not detected (Not Detecte) Coronavirus OC43 (PCR) Not detected (Not Detect) Coronavirus HKU1 (PCR) Not detected (Not Detect) Coronavirus 229E (PCR) Not detected (Not Detect) SARS-CoV-2 (PCR) Not detected (Not Detecte) Coronavirus NL63 (PCR) Not detected (Not Detect) Human Metapneumovir PCR Not detected (Not Detect) Influenza Type A (PCR) Not detected (Not Detect) Influenza Type B (PCR) Not detected (Not Detect) M. pneumoniae (PCR) Not detected (Not Detect) Parainfluenza 1 (PCR) Not detected (Not Detect) Parainfluenza 2 (PCR) Not detected (Not Detect) Parainfluenza 3 (PCR) Not detected (Not Detect) Parainfluenza 4 (PCR) Not detected (Not Detect) RSV (PCR) Not detected (Not Detect) Entero/Rhino (PCR) Not detected (Not Detect) 10/22/23 Range/Units 15:30 WBC (4.5-11.0) X10^3/uL RBC (4.0-5.2) X10^6/uL Hgb (12.0-16.0) g/dL Hct (36-46) % MCV (80-100) fL MCH (26-34) PG MCHC (30-36) % RDW (11.6-14.8) % Plt Count (150-400) X10^3/uL Neut % (Auto) (50-75) % Lymph % (Auto) (25-40) % [place] % (Auto) (3-14) % Eos % (Auto) (2-4) % Baso % (Auto) (0-2) % Neut # (Auto) (7916-9275) /uL Lymph # (Auto) (0193-3279) /uL [place] # (Auto) (0-900) /uL Eos # (Auto) (0-450) /uL Baso # (Auto) (0-100) /uL RBC Morphology Hypochromasia Anisocytosis Target Cells Sodium (137-145) mmol/L Potassium (3.4-5.1) mmol/L Chloride (98-107) mmol/L Carbon Dioxide (22-32) mmol/L BUN (7-17) mg/dL Creatinine (0.52-1.04) mg/dL Estimated GFR (>60) mL/min BUN/Creatinine Ratio (6-22) Glucose (80-110) mg/dL Lactate (0.7-2.1) mmol/L Calcium (8.4-10.2) mg/dL Total Bilirubin (0.2-1.3) mg/dL AST (14-36) IU/L ALT (<35) IU/L Alkaline Phosphatase (38-126) U/L Ammonia (9-30) umol/L Total Protein (6.3-8.2) g/dL Albumin (3.5-5.0) g/dL Globulin (1.7-4.1) g/dL Albumin/Globulin Ratio (1.0-2.8) Procalcitonin (<0.5) ng/mL Urine Color Urine Appearance Urine pH Normal (4.5-8.0) Ur Specific [place] (1.000-1.035) Urine Protein (Negative) Urine Glucose (UA) (Negative) g/dL Urine Ketones (NEGATIVE) Urine Occult Blood (Negative) Urine Nitrate (Negative) Urine Bilirubin (NEGATIVE) Ur Bilirubin Confirm (Negative) Urine Urobilinogen (0.2) E.U./dL Ur Leukocyte Esterase (NEGATIVE) Urine RBC (0-5/HPF) Urine WBC (0-5/HPF) Ur Squamous Epith Cells (0-5/HPF) Urine Bacteria (None) Ur Culture Indicated? Vol Urine Centrifuged U Opiates 300ng/mL cut (Negative) Ur Oxycodone Screen (Negative) Urine Methadone Screen (Negative) Ur Barbiturates Screen (Negative) U Tricyclic Antidepress (Negative) Ur Phencyclidine Scrn (Negative) Ur Amphetamines Screen (Negative) U Methamphetamines Scrn (Negative) Ur MDMA Scrn (Ecstasy) (Negative) U Benzodiazepines Scrn (Negative) Urine Cocaine Screen (Negative) U Marijuana (THC) Screen (Negative) Urine Specific [place] Normal (Normal) Ur Creatinine Normal (Normal) Chlamy pneumoniae PCR (Not Detect) Adenovirus (PCR) (Not Detect) B.parapertussis DNA PCR (Not Detecte) Coronavirus OC43 (PCR) (Not Detect) Coronavirus HKU1 (PCR) (Not Detect) Coronavirus 229E (PCR) (Not Detect) SARS-CoV-2 (PCR) (Not Detecte) Coronavirus NL63 (PCR) (Not Detect) Human Metapneumovir PCR (Not Detect) Influenza Type A (PCR) (Not Detect) Influenza Type B (PCR) (Not Detect) M. pneumoniae (PCR) (Not Detect) Parainfluenza 1 (PCR) (Not Detect) Parainfluenza 2 (PCR) (Not Detect) Parainfluenza 3 (PCR) (Not Detect) Parainfluenza 4 (PCR) (Not Detect) RSV (PCR) (Not Detect) Entero/Rhino (PCR) (Not Detect) Point of Care Testing Glucose POC [address] scan - head: Radiologist's Impression: PROCEDURE: CT HEAD/BRAIN WO CON INDICATIONS: ams, altered mental status, transient alteration of consciousness per notes TECHNIQUE: Noncontrast 4.5 mm thick angled axial sections acquired from the foramen magnum to the vertex, with coronal and sagittal reformats. For radiation dose reduction, the following was used: automated exposure control, adjustment of mA and/or kV according to patient size. COMPARISON: [facility], CT, CT HEAD/BRAIN WO CON, 10/05/2023, 12:55. FINDINGS: Ventricles and cortical sulci are mildly dilated commonly represents a pattern of atrophy, unchanged. Moderate areas of low-attenuation in the periventricular deep white matter commonly related to chronic small vessel ischemic changes or other process, unchanged. Moderate hyperostosis frontalis interna or diffuse calvarial thickening, unchanged. Image quality: Diagnostic. No intracranial bleeds or masses. There is intracranial internal carotid artery atherosclerosis. Sinuses: Visualized sinuses and mastoids are clear. IMPRESSION: Pattern of atrophy, unchanged. Moderate chronic small vessel ischemic changes, unchanged. No CT evidence of intracranial hemorrhage. If symptoms persist or worsen, or there is high clinical suspicion of intracranial abnormality, MRI brain could be performed. Dictated by: Dave Wayne M.D. on 10/22/2023 at 15:12 Approved by: Dave Wayne M.D. on 10/22/2023 at 15:18 CT scan - abdomen/pelvis: Radiologist's Impression: PROCEDURE: CT CHEST ABD PEL W CON INDICATIONS: fever TECHNIQUE: After the administration of intravenous contrast, 5 mm thick sections acquired from the lung apices to the symphysis. 5 mm coronal and sagittal reformats were performed, with additional 7 mm MIP reformats through the lungs. For radiation dose reduction, the following was used: automated exposure control, adjustment of mA and/or kV according to patient size. COMPARISON: None. FINDINGS: CHEST: Moderate cardiomegaly with four-chamber enlargement. Mild bibasilar subsegmental atelectasis some of which may be related expiratory result. [id number] bilateral peribronchial thickening with diffuse patchy ground-glass opacities some of which related expiratory result although bronchitis, viral infection, bronchopneumonia, atypical pneumonia or other process could be considered. Mild pulmonary vascular congestion and mild interstitial edema. Evidence of prior bilateral thoracotomies with bilateral lung parenchymal surgical clips suspected partial pneumonectomy is inferiorly-laterally on the right and inferior anteriorly on the left. No pneumothorax, no pleural effusion, no pericardial effusion. Bilateral breast implants. Moderate degenerate changes lower cervical, thoracic spine without CT evidence of fracture or subluxation. No CT evidence of rib fracture. Lower Neck: No enlarged lymph nodes. Thyroid: No thyroid nodules which require sonographic follow up, per consensus guidelines. Axillae: No enlarged lymph nodes. Thoracic Vessels: The aorta and pulmonary arteries demonstrate normal size. Mediastinum and Anna: No enlarged lymph nodes. ABDOMEN: [id number] nonspecific wall thickening of the distal descending and proximal sigmoid colon, similar mild wall thickening is noted in the cecum and proximal ascending colon. Some of which may be artifact from partial nondistention however there is pericolonic edema and pelvic fluid which raises the suspicion for infectious/inflammatory versus ischemic colitis. No significant diverticulosis to suggest diverticulitis. Minimal calcifications of the aorta without CT evidence of aneurysm or dissection. Status post cholecystectomy with extrahepatic and intrahepatic biliary ductal dilatation commonly related to post cholecystectomy status measuring up to 2 cm mid common bile duct. Cannot exclude possible pattern of obstruction, choledocholithiasis or other process. Mild nonspecific wall thickening of the urinary bladder measures up to 8 mm thickness commonly artifact from partial nondistention although mild cystitis, chronic urinary retention or other process could be considered. Severe diffuse fatty atrophy of the pancreas. Moderate amount of stool throughout the colon in a pattern of constipation. Mild hiatal hernia with nonspecific wall thickening of the distal esophagus into the stomach with evidence of prior partial gastrectomy may be related to esophagitis, gastritis. Normal nondilated appendix. Moderate degenerate changes lower thoracic, lumbar spine most notably at T11-12 with borderline mild central stenosis. No CT evidence of fracture or subluxation. Liver: Liver is normal in size and contour. Spleen: Size is within normal limits. Adrenal Glands: No adrenal nodules. Kidneys and Ureters: No hydronephrosis. No solid mass. No complex renal cystic lesion which requires follow up. No free air. Ventral Wall: No significant ventral hernia. Abdominal Nodes: No retroperitoneal or mesenteric adenopathy by size criteria. Vessels: Aorta and inferior vena cava are normal in size. PELVIS: Pelvic Organs: Unremarkable. Pelvic Nodes: No enlarged lymph nodes. IMPRESSION: [id number] nonspecific wall thickening of the colon as discussed above suspicious for colitis. Follow-up suggested. Moderate cardiomegaly. [id number]-[id number] bilateral peribronchial thickening with diffuse patchy ground-glass opacities as discussed above. Mild pulmonary vascular congestion and mild interstitial edema. Status post cholecystectomy with extrahepatic and intrahepatic biliary ductal dilatation as discussed above. Mild nonspecific wall thickening of the urinary bladder. Other chronic findings as described above. Follow-up suggested. Dictated by: Dave Wayne M.D. on 10/22/2023 at 15:30 Chest x-ray: Radiologist's Impression: PROCEDURE: XR CHEST 1V INDICATIONS: altered mental status TECHNIQUE: One view of the chest was acquired. COMPARISON: [facility], CR, XR CHEST 1V, 10/05/2023, 13:27. FINDINGS: Surgical changes and devices: Surgical clips project over the thorax. Lungs and pleura: Lungs are clear. No pleural effusions or pneumothorax. Mediastinum: Mediastinal contours appear normal. Heart size is enlarged. Bones and chest wall: No suspicious bony lesions. Overlying soft tissues appear unremarkable. IMPRESSION: No acute cardiopulmonary abnormality is seen. Dictated by: Roberto Gasca M.D. on 10/22/2023 at 12: ECG Data Attestation: I personally reviewed and interpreted this ECG as follows: Prior ECG tracings: available for review Interpretation: Normal sinus rhythm rate 99 NH interval 160 QRS 80 QTC 450 no ischemia similar to prior EKGs MDM Narrative Medical decision making narrative: MDM CC: Altered mental Complicating co-morbidities: Obesity COPD on home O2 Data collected from: EMS Medical records reviewed: Previous ED visit on October 04 Differential considered: Seizure, sepsis, intracranial hemorrhage, CVA meningitis encephalitis toxicology Exam documented above, pertinent findings include: Pale diffuse pain all over but she is able to speak moving all extremities. No significant erythema on skin abdomen mild tenderness but no localization Lab Test results independently reviewed as above. Pertinent findings: WBC 10 point 5 hemoglobin 9 0.7/32.8 previously 8.9/30.2 platelets 320, lactic acid 1.3, procalcitonin 0.053 Sodium 133 potassium 3.5 chloride 100 carbon dioxide 31 BUN 16 creatinine 0.5, bilirubin 0.4 AST 31 ALT 17 alk-phos 90 Respiratory panel neck Urinalysis positive for nitrates leukocytes and bacteria consistent with UTI Independently reviewed EKG as above no ischemic Imaging studies independently reviewed: Head CT negative, CT chest abdomen does show some [id number] thickening of distal colon, thickening of bladder mild cystitis Consultations: Dr. Zelaya accepts Treatments: Rocephin Re-evaluations: Patient remained stable she is awake alert mildly confused moving all extremities Discussion: Patient was an extremely hard IV start and stick. It did take multiple attempts. She was hemodynamically stable. She is quite pale but surprisingly her hemoglobin actually went up. No history or evidence of acute bleeding. She is kind of complaining of pain all over unclear what is causing her all over pain. She does have nitrates and bacteria in her urine along with CT findings with thickened bladder consistent with UTI. She is given Rocephin. No evidence of severe sepsis she has a normal lactic acid in stable vitals. Patient does have a low-grade temp of 100?. She is confused possible encephalitis meningitis however she is really not complaining of headache or having severe neck pain so I think unlikely. Discharge Plan Departure Patient Disposition: Admitted As Inpatient Clinical Impression: Acute metabolic encephalopathy, Acute UTI Admit Date/Time: 10/22/23 17:11 Admit Provider: Noe Zelaya
--- NOTE | 2023-10-22 12:38 | DI.CT.S_ITS ---
PROCEDURE: CT HEAD/BRAIN WO CON INDICATIONS: ams, altered mental status, transient alteration of consciousness per notes TECHNIQUE: Noncontrast 4.5 mm thick angled axial sections acquired from the foramen magnum to the vertex, with coronal and sagittal reformats. For radiation dose reduction, the following was used: automated exposure control, adjustment of mA and/or kV according to patient size. COMPARISON: [facility], CT, CT HEAD/BRAIN WO CON, 10/05/2023, 12:55. FINDINGS: Ventricles and cortical sulci are mildly dilated commonly represents a pattern of atrophy, unchanged. Moderate areas of low-attenuation in the periventricular deep white matter commonly related to chronic small vessel ischemic changes or other process, unchanged. Moderate hyperostosis frontalis interna or diffuse calvarial thickening, unchanged. Image quality: Diagnostic. No intracranial bleeds or masses. There is intracranial internal carotid artery atherosclerosis. Sinuses: Visualized sinuses and mastoids are clear. IMPRESSION: Pattern of atrophy, unchanged. Moderate chronic small vessel ischemic changes, unchanged. No CT evidence of intracranial hemorrhage. If symptoms persist or worsen, or there is high clinical suspicion of intracranial abnormality, MRI brain could be performed. Dictated by: Dave Wayne M.D. on 10/22/2023 at 15:12 Approved by: Dave Wayne M.D. on 10/22/2023 at 15:18
--- NOTE | 2023-10-22 12:38 | DI.CT.S_ITS ---
PROCEDURE: CT CHEST ABD PEL W CON INDICATIONS: fever TECHNIQUE: After the administration of intravenous contrast, 5 mm thick sections acquired from the lung apices to the symphysis. 5 mm coronal and sagittal reformats were performed, with additional 7 mm MIP reformats through the lungs. For radiation dose reduction, the following was used: automated exposure control, adjustment of mA and/or kV according to patient size. COMPARISON: None. FINDINGS: CHEST: Moderate cardiomegaly with four-chamber enlargement. Mild bibasilar subsegmental atelectasis some of which may be related expiratory result. Angx-dh-fdzcqiru bilateral peribronchial thickening with diffuse patchy ground-glass opacities some of which related expiratory result although bronchitis, viral infection, bronchopneumonia, atypical pneumonia or other process could be considered. Mild pulmonary vascular congestion and mild interstitial edema. Evidence of prior bilateral thoracotomies with bilateral lung parenchymal surgical clips suspected partial pneumonectomy is inferiorly-laterally on the right and inferior anteriorly on the left. No pneumothorax, no pleural effusion, no pericardial effusion. Bilateral breast implants. Moderate degenerate changes lower cervical, thoracic spine without CT evidence of fracture or subluxation. No CT evidence of rib fracture. Lower Neck: No enlarged lymph nodes. Thyroid: No thyroid nodules which require sonographic follow up, per consensus guidelines. Axillae: No enlarged lymph nodes. Thoracic Vessels: The aorta and pulmonary arteries demonstrate normal size. Mediastinum and Anna: No enlarged lymph nodes. ABDOMEN: Mvja-wa-figrpnns nonspecific wall thickening of the distal descending and proximal sigmoid colon, similar mild wall thickening is noted in the cecum and proximal ascending colon. Some of which may be artifact from partial nondistention however there is pericolonic edema and pelvic fluid which raises the suspicion for infectious/inflammatory versus ischemic colitis. No significant diverticulosis to suggest diverticulitis. Minimal calcifications of the aorta without CT evidence of aneurysm or dissection. Status post cholecystectomy with extrahepatic and intrahepatic biliary ductal dilatation commonly related to post cholecystectomy status measuring up to 2 cm mid common bile duct. Cannot exclude possible pattern of obstruction, choledocholithiasis or other process. Mild nonspecific wall thickening of the urinary bladder measures up to 8 mm thickness commonly artifact from partial nondistention although mild cystitis, chronic urinary retention or other process could be considered. Severe diffuse fatty atrophy of the pancreas. Moderate amount of stool throughout the colon in a pattern of constipation. Mild hiatal hernia with nonspecific wall thickening of the distal esophagus into the stomach with evidence of prior partial gastrectomy may be related to esophagitis, gastritis. Normal nondilated appendix. Moderate degenerate changes lower thoracic, lumbar spine most notably at T11-12 with borderline mild central stenosis. No CT evidence of fracture or subluxation. Liver: Liver is normal in size and contour. Spleen: Size is within normal limits. Adrenal Glands: No adrenal nodules. Kidneys and Ureters: No hydronephrosis. No solid mass. No complex renal cystic lesion which requires follow up. No free air. Ventral Wall: No significant ventral hernia. Abdominal Nodes: No retroperitoneal or mesenteric adenopathy by size criteria. Vessels: Aorta and inferior vena cava are normal in size. PELVIS: Pelvic Organs: Unremarkable. Pelvic Nodes: No enlarged lymph nodes. IMPRESSION: Lqfn-ro-wseerbxa nonspecific wall thickening of the colon as discussed above suspicious for colitis. Follow-up suggested. Moderate cardiomegaly. Kkdd-cy-uwofiylb bilateral peribronchial thickening with diffuse patchy ground-glass opacities as discussed above. Mild pulmonary vascular congestion and mild interstitial edema. Status post cholecystectomy with extrahepatic and intrahepatic biliary ductal dilatation as discussed above. Mild nonspecific wall thickening of the urinary bladder. Other chronic findings as described above. Follow-up suggested. Dictated by: Dave Wayne M.D. on 10/22/2023 at 15:30 Approved by: Dave Wayne M.D. on 10/22/2023 at 16:02
--- NOTE | 2023-10-22 13:11 | EKG_ITS ---
[place] [id number] [place] [id number] Test Date: 2023-10-22 Pat Name: Kimmie Dunn Department: [facility] Room: Gender: Female Pediatric Orthodontist: JERILYN : 1950 Requested By: Order Number: [id number] Reading MD: Noe Zelaya Measurements Intervals [place] Rate: 99 P: 42 MA: 160 QRS: -30 QRSD: 80 T: 58 QT: 352 QTc: 451 Interpretive Statements Normal sinus rhythm Left axis deviation Cannot rule out Anterior infarct , age undetermined Electronically Signed On 10-22-2023 18:03:11 PDT by Noe Zelaya
[2023-10-22 13:48] LABS: Adenovirus Not Detected (Not Detect); B. parapertussis Not Detected (Not Detecte); Bordetella pertussis Not Detected (Not Detect); Chlamydophila pneumoniae Not Detected (Not Detect); Coronavirus 229E Not Detected (Not Detect); Coronavirus HKU1 Not Detected (Not Detect); Coronavirus NL 63 Not Detected (Not Detect); Coronavirus OC43 Not Detected (Not Detect); Human Metapneumovirus Not Detected (Not Detect); Human Rhinovirus/Enterovirus Not Detected (Not Detect); Influenza A Not Detected (Not Detect); Influenza B Not Detected (Not Detect); Mycoplasma pneumoniae Not Detected (Not Detect); Parainfluenza Virus 1 Not Detected (Not Detect); Parainfluenza Virus 2 Not Detected (Not Detect); Parainfluenza Virus 3 Not Detected (Not Detect); Parainfluenza Virus 4 Not Detected (Not Detect); Respiratory Syncytial Virus Not Detected (Not Detect); SARS- CoV-2 Not Detected (Not Detecte)
[2023-10-22 14:34] LABS: Add Manual Diff / Slide Review NO; Basophils Absolute Auto 0 /uL (0-100); Basophils Percent Auto 0.3 % (0-2); Eosinophils Absolute Auto 100 /uL (0-450); Eosinophils Percent Auto 0.8 % (2-4); Hematocrit 32.8 % (36-46); Hemoglobin 9.7 g/dL (12.0-16.0); Lymphocytes Absolute Auto 1900 /uL (1100-4500); Lymphocytes Percent Auto 17.9 % (25-40); Mean Corpuscular HGB Conc 29.7 % (30-36); Mean Corpuscular Hemoglobin 20.9 PG (26-34); Mean Corpuscular Volume 70.6 fL (80-100); Monocytes Absolute Auto 1800 /uL (0-900); Monocytes Percent Auto 17.5 % (3-14); Neutrophils Absolute Auto 6700 /uL (1500-7000); Neutrophils Percent Auto 63.5 % (50-75); Platelet Count 321 X10^3/uL (150-400); Red Blood Cell Count 4.65 X10^6/uL (4.0-5.2); Red Cell Distribution Width 27.3 % (11.6-14.8); White Blood Cell Count 10.5 X10^3/uL (4.5-11.0)
[2023-10-22 14:46] LABS: Ammonia (NH3) 27 umol/L (9-30); Lactate (Lactic Acid) 1.3 mmol/L (0.7-2.1)
[2023-10-22 14:47] LABS: Alanine Aminotransferase 17 IU/L (<35); Albumin 2.5 g/dL (3.5-5.0); Albumin Globulin Ratio 0.8 (1.0-2.8); Alkaline Phosphatase 90 U/L (38-126); Aspartate Aminotransferase 31 IU/L (14-36); BUN Creatinine Ratio 30.2 (6-22); Bilirubin Total 0.4 mg/dL (0.2-1.3); Blood Urea Nitrogen 16 mg/dL (7-17); Calcium 8.1 mg/dL (8.4-10.2); Carbon Dioxide 31 mmol/L (22-32); Chloride 100 mmol/L (98-107); Estimated Glomerular Filt Rate > 60 mL/min (>60); Globulin 3.2 g/dL (1.7-4.1); Glucose 101 mg/dL (80-110); HEMOLYSIS < 15 (0-50); Potassium 3.5 mmol/L (3.4-5.1); Sodium 133 mmol/L (137-145); Total Protein 5.7 g/dL (6.3-8.2)
[2023-10-22 14:59] LABS: Target Cells 2+
[2023-10-22 15:00] LABS: Anisocytosis 3+
[2023-10-22 15:02] LABS: Hypochromasia 1+
[2023-10-22 15:06] LABS: Procalcitonin 0.053 ng/mL (<0.5)
[2023-10-22 15:41] LABS: Appearance Urine UA SL CLOUDY; Bilirubin Urine UA 2+ (NEGATIVE); Color Urine UA YELLOW; Glucose Urine UA NEGATIVE (Negative); Ketones Urine UA 1+ (NEGATIVE); Leukocyte Esterase Urine UA 1+ (NEGATIVE); Nitrite Urine UA POSITIVE (Negative); Occult Blood Urine UA NEGATIVE (Negative); Protein Urine UA TRACE (Negative)
[2023-10-22 16:29] LABS: pH Urine UA 6.5 (4.5-8.0)
[2023-10-22 16:33] LABS: Bacteria Urine Many (>30); RBC Urine None Seen (0-5/HPF); Squamous Epithelial Cell Urine None Seen (0-5/HPF); Urine Volume 10mL (spun); WBC Urine 30-100/HPF (0-5/HPF)
[2023-10-22 16:35] LABS: Culture Indicated Urine Specimen Cultured; Ictotest Urine Negative (Negative)
[2023-10-22] MEDS: cefTRIAXone 1,000 MG in SODIUM CHLORIDE 0.9% 100 ML 200 MG IV (17:11)
--- NOTE | 2023-10-22 17:34 | PM.HP.1 ---
History of Present Illness History of Present Illness Date Patient Seen: 10/22/23 Time Patient Seen: 17:34 Chief complaint: Decreased LOC Narrative: The patient is a 72-year-old female with COPD and home oxygen. She also has a history of obesity, migraines, and mood disorder. She presented today with altered mental status and was found to have evidence of a urinary tract infection in the emergency department. She was also found to be pale, lethargic, and have a fever of 100.1. The patient does note dysuria and lower abdominal pain. This loud sounds and any touch of her legs. She was quite irritable and not very willing to participate in questions. She did deny any dyspnea, cough, or chest pain. 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 Unspecified convulsions Myalgia Seasonal allergic rhinitis Hypertensive heart disease without heart failure Insomnia Migraine Anxiety disorder Unspecified mood [affective] disorder Major depressive disorder Vitamin D deficiency Vitamin B deficiency Epilepsy Bipolar disorder Morbid obesity due to excess calories Oxygen dependent COPD (chronic obstructive pulmonary disease) Social History Smoking Status: Unknown if ever smoked Meds Home Medications and Allergies Home Medications Medication Instructions Recorded Confirmed Type acetaminophen 300 mg-codeine 30 mg 1 - 2 tab PO Q8H PRN Pain (Scale 10/05/23 10/05/23 History tablet Score 7-10) acetaminophen 500 mg capsule 1,000 mg PO Q8HR 10/05/23 10/05/23 History albuterol sulfate 90 mcg/actuation 2 puff inhalation Q4-6H PRN 10/05/23 10/05/23 History aerosol inhaler (ProAir HFA) Shortness Of Breath aspirin 81 mg capsule 81 mg PO DAILY 10/05/23 10/05/23 History buspirone 15 mg tablet 15 mg PO BID 10/05/23 10/05/23 History cholecalciferol (vitamin D3) 25 25 mcg PO QAM 10/05/23 10/05/23 History mcg (1,000 unit) capsule (Vitamin D3) divalproex 500 mg tablet,delayed 1,000 mg PO BEDTIME 10/05/23 10/05/23 History release divalproex 500 mg tablet,extended 500 mg PO QAM 10/05/23 10/05/23 History release 24 hr ferrous gluconate 324 mg (36 mg 324 mg PO DAILY 10/05/23 10/05/23 History iron) tablet gabapentin 100 mg tablet 200 mg PO BID 10/05/23 10/05/23 History ibuprofen 800 mg tablet 800 mg PO Q6H PRN Pain (Scale 10/05/23 10/05/23 History Score 4-6) levothyroxine 100 mcg capsule 100 mcg PO DAILY 10/05/23 10/05/23 History magnesium oxide 400 mg PO DAILY 10/05/23 10/05/23 History ondansetron HCl 4 mg tablet 4 mg PO Q8H PRN nausea/vomiting 10/05/23 10/05/23 History tiotropium bromide 18 mcg capsule 1 cap inhalation BEDTIME 10/05/23 10/05/23 History with inhalation device (Spiriva with HandiHaler) triamcinolone acetonide 0.1 % 1 applic topical BID 10/05/23 10/05/23 History topical cream venlafaxine 150 mg tablet,extended 150 mg PO DAILY 10/05/23 10/05/23 History release 24 hr Allergies Allergy/AdvReac Type Severity Reaction Status Date / Time diphenhydramine Allergy Unknown Verified 10/05/23 13:10 Review of Systems Review of Systems Narrative: The patient was not willing to participate in a review of systems. Exam Vital Signs (past 8 hours): - 10/22/23 12:03 10/22/23 12:03 10/22/23 12:07 Temperature 100.1 F H Pulse Rate 99 H 100 H Respiratory Rate 24 Blood Pressure 123/71 123/71 Pulse Oximetry 99 98 Oxygen Delivery Method Nasal Cannula Oxygen Flow Rate 3 10/22/23 12:30 10/22/23 13:00 10/22/23 13:30 Temperature Pulse Rate 104 H 101 H 99 H Respiratory Rate 18 24 Blood Pressure Pulse Oximetry 98 Oxygen Delivery Method Nasal Cannula Oxygen Flow Rate 3 10/22/23 13:49 10/22/23 14:16 10/22/23 14:16 Temperature Pulse Rate 101 H Respiratory Rate 19 Blood Pressure 134/78 163/75 H Pulse Oximetry Oxygen Delivery Method Oxygen Flow Rate 10/22/23 14:42 10/22/23 15:00 10/22/23 15:00 Temperature Pulse Rate 100 H 98 H Respiratory Rate 21 Blood Pressure 143/78 H Pulse Oximetry 96 Oxygen Delivery Method Nasal Cannula Oxygen Flow Rate 3 10/22/23 15:30 10/22/23 15:31 10/22/23 15:31 Temperature Pulse Rate 105 H 102 H Respiratory Rate 22 12 Blood Pressure 94/62 Pulse Oximetry 96 93 Oxygen Delivery Method Nasal Cannula Oxygen Flow Rate 3 10/22/23 16:00 10/22/23 16:00 10/22/23 16:30 Temperature Pulse Rate 96 H 96 H Respiratory Rate 14 15 Blood Pressure 138/78 Pulse Oximetry 100 99 Oxygen Delivery Method Oxygen Flow Rate 10/22/23 16:30 10/22/23 17:00 10/22/23 17:00 Temperature Pulse Rate 94 H Respiratory Rate 15 Blood Pressure 135/79 139/67 Pulse Oximetry 100 Oxygen Delivery Method Nasal Cannula Oxygen Flow Rate 3 Oxygen Delivery Method Nasal Cannula Oxygen Flow Rate 3 Narrative Exam Narrative: NAD, somnolent and oriented, fluent speech, irritable. Tell me she had not talk to me anymore after a short time. She does appear chronically ill in the has dusky skin. Normocephalic skull, EOMI, anicteric sclera, symmetric pupils. Oropharynx unremarkable, no droop. Neck supple, midline trachea, no adenopathy. Lungs clear, normal rate and effort. Heart regular, no murmur gallop or rub. Abdomen is soft, non distended and non tender. Extremities are free of edema. Skin is free of rash or lesions. Joints are not swollen or deformed. Judgment appears to be abnormal. She was irritable and became unwilling to talk after a short time. She told me I was talking to loud initially and asked why I was touching her legs more than once when she said they hurt. Objective ECG Impression: Normal sinus rhythm Left axis deviation Cannot rule out Anterior infarct , age undetermined Imaging Multiple studies:: Radiologist's impression: Head CT: Pattern of atrophy, unchanged. Moderate chronic small vessel ischemic changes, unchanged. No CT evidence of intracranial hemorrhage. If symptoms persist or worsen, or there is high clinical suspicion of intracranial abnormality, MRI brain could be performed. Chest abdomen and pelvis CT: Fjlo-aj-wokeutks nonspecific wall thickening of the colon as discussed above suspicious for colitis. Follow-up suggested. Moderate cardiomegaly. Stit-eq-ucfosjkg bilateral peribronchial thickening with diffuse patchy ground-glass opacities as discussed above. Mild pulmonary vascular congestion and mild interstitial edema. Status post cholecystectomy with extrahepatic and intrahepatic biliary ductal dilatation as discussed above. Mild nonspecific wall thickening of the urinary bladder. Other chronic findings as described above. Follow-up suggested. Chest x-ray: No acute cardiopulmonary abnormality is seen. Labs 10/22/23 14:15 10/22/23 14:15 Labs: Laboratory Results - last 24 hr 10/22/23 10/22/23 10/22/23 12:34 14:15 15:30 WBC 10.5 RBC 4.65 Hgb 9.7 L Hct 32.8 L MCV 70.6 L MCH 20.9 L MCHC 29.7 L RDW 27.3 H Plt Count 321 Neut % (Auto) 63.5 Lymph % (Auto) 17.9 L Cotton % (Auto) 17.5 H Eos % (Auto) 0.8 L Baso % (Auto) 0.3 Neut # (Auto) 6700 Lymph # (Auto) 1900 [place] # (Auto) 1800 H Eos # (Auto) 100 Baso # (Auto) 0 RBC Morphology See below Hypochromasia 1+ H Anisocytosis 3+ H Target Cells 2+ H Sodium 133 L Potassium 3.5 Chloride 100 Carbon Dioxide 31 BUN 16 Creatinine 0.53 Estimated GFR > 60 BUN/Creatinine Ratio 30.2 H Glucose 101 Lactate 1.3 Calcium 8.1 L Total Bilirubin 0.4 AST 31 ALT 17 Alkaline Phosphatase 90 Ammonia 27 Total Protein 5.7 L Albumin 2.5 L Globulin 3.2 Albumin/Globulin Ratio 0.8 L Procalcitonin 0.053 Urine Color Yellow Urine Appearance Sl cloudy Urine pH 6.5 Ur Specific [place] 1.020 Urine Protein Trace H Urine Glucose (UA) Negative Urine Ketones 1+ H Urine Occult Blood Negative Urine Nitrate Positive H Urine Bilirubin 2+ H Ur Bilirubin Confirm Negative Urine Urobilinogen 4.0 H Ur Leukocyte Esterase 1+ H Urine RBC None seen Urine WBC 30-100/hpf H Ur Squamous Epith Cells None seen Urine Bacteria Many (>30) H Ur Culture Indicated? Specimen cultured Vol Urine Centrifuged 10ml (spun) Chlamy pneumoniae PCR Not detected Adenovirus (PCR) Not detected B.parapertussis DNA PCR Not detected Coronavirus OC43 (PCR) Not detected Coronavirus HKU1 (PCR) Not detected Coronavirus 229E (PCR) Not detected SARS-CoV-2 (PCR) Not detected Coronavirus NL63 (PCR) Not detected Human Metapneumovir PCR Not detected Influenza Type A (PCR) Not detected Influenza Type B (PCR) Not detected M. pneumoniae (PCR) Not detected Parainfluenza 1 (PCR) Not detected Parainfluenza 2 (PCR) Not detected Parainfluenza 3 (PCR) Not detected Parainfluenza 4 (PCR) Not detected RSV (PCR) Not detected Entero/Rhino (PCR) Not detected Assessment & Plan Assessment & Plan narrative: 1. Urinary tract infection, present on admission and active. 2. Septic encephalopathy, present on admission and active. 3. COPD with chronic hypoxic respiratory failure, present on admission and active. 4. History of migraine, present on admission and not active. 5. Mood disorder, present on admission and active. 6. Obesity class 2 with BMI of 36, present on admission and active. Plan: -IV fluids -IV antibiotics, ceftriaxone. Follow urine and blood cultures. -monitor mental status. -O2 a usual setting of 2 L. Patient was full resuscitation. Inpatient status, anticipate a 2 midnight stay in the hospital. This is primarily because of her encephalopathy secondary to her infection. KARLEE is 10/23. Time-Based Coding :: 35 min spent with patient and on the chart (including review of chart, obtaining history, exam, reviewing outside data, placing orders, documenting exam and treatment plan, and counseling patient) on 10/21. Quality MIPS - Admit The patient?s Advance Care plan is not present because I confirmed today that the patient does not wish or was not able to name a surrogate decision maker or provide an Advance Care Plan.: Yes MIPS - Meds 'Current medications' to include all prescriptions, iiwy-rky-suqibso products, herbals, cannabis/cannabidiol products, and vitamin/mineral/dietary (nutritional) supplements. I have utilized all available resources to obtain, update, or review the patient?s current medications. [If Yes, STOP here]: Yes
[2023-10-22 18:46] LABS: UR Morphine/Opiate cutoff 300 Positive (Negative); Ur Creatinine Normal (Normal); Ur Specific Gravity Normal (Normal); Urine Cocaine Negative (Negative); Urine Tetrahydrocannabinol Negative (Negative); Urine pH Normal (Normal)
[2023-10-22 18:47] LABS: Urine Amphetamines Negative (Negative); Urine Barbiturates Negative (Negative); Urine Benzodiazepines Negative (Negative); Urine MDMA Negative (Negative); Urine Methadone Negative (Negative); Urine Methamphetamines Negative (Negative); Urine Oxycodone Negative (Negative); Urine Phencyclidine Negative (Negative); Urine Tricyclic Antidepressant Positive (Negative)
--- NOTE | 2023-10-22 18:53 | PC.NURSE ---
Patient arrived to room 207 at 1840 this evening. She is A&OX1-2, confused. She has many scabs covering legs and hips,and abdomen as well as toenails. She has fungal rash to groin. VSS on 3LNC, afebrile. Yates in place draining dark yellow urine. She is resistive to care, saying it hurts to move. She is aggreeable to prn tylenol PO. IVF hung and patient settled and oriented to room.
[2023-10-22] MEDS: SODIUM CHLORIDE 0.9% 1,000 ML 100 ML IV (18:57)
[2023-10-22] MEDS: ACETAMINOPHEN 325 MG TABLET 650 MG PO (18:59)
[2023-10-22] MEDS: SENNOSIDES 8.6 MG TABLET 17.2 MG PO (21:24)
[2023-10-22] MEDS: HEPARIN 5,000 UNIT/ML VIAL 5000 UNIT SUBCUT (21:25)
[2023-10-22] MEDS: NYSTATIN POWDER 15GM 1 APPLIC TOP (21:25)
[2023-10-23 07:00] VITALS: BP 117/63; PULSE 88; RESP 22; TEMP 38; O2SAT 92
--- NOTE | 2023-10-23 07:18 | P.PN_ITS ---
Subjective Subjective Interval history: Admitted with UTI and encephalopathy. S: She is more alert today, and denies pain. Exam Vital Signs (past 8 hours): - 10/22/23 23:46 Temperature 99.5 F Pulse Rate 97 H Respiratory Rate 18 Blood Pressure 114/59 L Pulse Oximetry 98 Oxygen Flow Rate 3 Oxygen Delivery Method Nasal Cannula Oxygen Flow Rate 3 Narrative Exam Narrative: NAD, alert and oriented. Fluent speech. Lungs are clear, normal rate and effort. Heart is regular, no murmur gallop or rub. Abdomen is soft, non distended. Extremities are free of edema. Objective Imaging Multiple studies:: Radiologist's impression: Head CT: Pattern of atrophy, unchanged. Moderate chronic small vessel ischemic changes, unchanged. No CT evidence of intracranial hemorrhage. If symptoms persist or worsen, or there is high clinical suspicion of intracranial abnormality, MRI brain could be performed. Chest abdomen and pelvis CT: Xdcb-lx-rbgzgjwf nonspecific wall thickening of the colon as discussed above suspicious for colitis. Follow-up suggested. Moderate cardiomegaly. Csdy-sn-gudlgugn bilateral peribronchial thickening with diffuse patchy ground- glass opacities as discussed above. Mild pulmonary vascular congestion and mild interstitial edema. Status post cholecystectomy with extrahepatic and intrahepatic biliary ductal dilatation as discussed above. Mild nonspecific wall thickening of the urinary bladder. Other chronic findings as described above. Follow-up suggested. Chest x-ray: No acute cardiopulmonary abnormality is seen. Labs 10/22/23 14:15 10/22/23 14:15 Labs: Laboratory Results - last 24 hr 10/22/23 10/22/23 10/22/23 12:34 14:15 15:30 WBC 10.5 RBC 4.65 Hgb 9.7 L Hct 32.8 L MCV 70.6 L MCH 20.9 L MCHC 29.7 L RDW 27.3 H Plt Count 321 Neut % (Auto) 63.5 Lymph % (Auto) 17.9 L [place] % (Auto) 17.5 H Eos % (Auto) 0.8 L Baso % (Auto) 0.3 Neut # (Auto) 6700 Lymph # (Auto) 1900 [place] # (Auto) 1800 H Eos # (Auto) 100 Baso # (Auto) 0 RBC Morphology See below Hypochromasia 1+ H Anisocytosis 3+ H Target Cells 2+ H Sodium 133 L Potassium 3.5 Chloride 100 Carbon Dioxide 31 BUN 16 Creatinine 0.53 Estimated GFR > 60 BUN/Creatinine Ratio 30.2 H Glucose 101 Lactate 1.3 Calcium 8.1 L Total Bilirubin 0.4 AST 31 ALT 17 Alkaline Phosphatase 90 Ammonia 27 Total Protein 5.7 L Albumin 2.5 L Globulin 3.2 Albumin/Globulin Ratio 0.8 L Procalcitonin 0.053 Urine Color Yellow Urine Appearance Sl cloudy Urine pH 6.5 Ur Specific [place] 1.020 Urine Protein Trace H Urine Glucose (UA) Negative Urine Ketones 1+ H Urine Occult Blood Negative Urine Nitrate Positive H Urine Bilirubin 2+ H Ur Bilirubin Confirm Negative Urine Urobilinogen 4.0 H Ur Leukocyte Esterase 1+ H Urine RBC None seen Urine WBC 30-100/hpf H Ur Squamous Epith Cells None seen Urine Bacteria Many (>30) H Ur Culture Indicated? Specimen cultured Vol Urine Centrifuged 10ml (spun) U Opiates 300ng/mL cut Positive H Ur Oxycodone Screen Negative Urine Methadone Screen Negative Ur Barbiturates Screen Negative U Tricyclic Antidepress Positive H Ur Phencyclidine Scrn Negative Ur Amphetamines Screen Negative U Methamphetamines Scrn Negative Ur MDMA Scrn (Ecstasy) Negative U Benzodiazepines Scrn Negative Urine Cocaine Screen Negative U Marijuana (THC) Screen Negative Urine Specific [place] Ur Creatinine Chlamy pneumoniae PCR Not detected Adenovirus (PCR) Not detected B.parapertussis DNA PCR Not detected Coronavirus OC43 (PCR) Not detected Coronavirus HKU1 (PCR) Not detected Coronavirus 229E (PCR) Not detected SARS-CoV-2 (PCR) Not detected Coronavirus NL63 (PCR) Not detected Human Metapneumovir PCR Not detected Influenza Type A (PCR) Not detected Influenza Type B (PCR) Not detected M. pneumoniae (PCR) Not detected Parainfluenza 1 (PCR) Not detected Parainfluenza 2 (PCR) Not detected Parainfluenza 3 (PCR) Not detected Parainfluenza 4 (PCR) Not detected RSV (PCR) Not detected Entero/Rhino (PCR) Not detected 10/22/23 15:30 WBC RBC Hgb Hct MCV MCH MCHC RDW Plt Count Neut % (Auto) Lymph % (Auto) [place] % (Auto) Eos % (Auto) Baso % (Auto) Neut # (Auto) Lymph # (Auto) [place] # (Auto) Eos # (Auto) Baso # (Auto) RBC Morphology Hypochromasia Anisocytosis Target Cells Sodium Potassium Chloride Carbon Dioxide BUN Creatinine Estimated GFR BUN/Creatinine Ratio Glucose Lactate Calcium Total Bilirubin AST ALT Alkaline Phosphatase Ammonia Total Protein Albumin Globulin Albumin/Globulin Ratio Procalcitonin Urine Color Urine Appearance Urine pH Normal Ur Specific [place] Urine Protein Urine Glucose (UA) Urine Ketones Urine Occult Blood Urine Nitrate Urine Bilirubin Ur Bilirubin Confirm Urine Urobilinogen Ur Leukocyte Esterase Urine RBC Urine WBC Ur Squamous Epith Cells Urine Bacteria Ur Culture Indicated? Vol Urine Centrifuged U Opiates 300ng/mL cut Ur Oxycodone Screen Urine Methadone Screen Ur Barbiturates Screen U Tricyclic Antidepress Ur Phencyclidine Scrn Ur Amphetamines Screen U Methamphetamines Scrn Ur MDMA Scrn (Ecstasy) U Benzodiazepines Scrn Urine Cocaine Screen U Marijuana (THC) Screen Urine Specific [place] Normal Ur Creatinine Normal Chlamy pneumoniae PCR Adenovirus (PCR) B.parapertussis DNA PCR Coronavirus OC43 (PCR) Coronavirus HKU1 (PCR) Coronavirus 229E (PCR) SARS-CoV-2 (PCR) Coronavirus NL63 (PCR) Human Metapneumovir PCR Influenza Type A (PCR) Influenza Type B (PCR) M. 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 Urinary tract infection, present on admission and active. 2. Septic encephalopathy, present on admission and improving. 3. COPD with chronic hypoxic respiratory failure, present on admission and active. 4. History of migraine, present on admission and not active. 5. Mood disorder, present on admission and active. 6. Obesity class 2 with BMI of 36, present on admission and active. Plan: -Continue IV fluids -IV antibiotics, ceftriaxone. Follow urine and blood cultures. -monitor mental status. This is better. -O2 a usual setting of 2 L. Patient was full resuscitation. Inpatient status, anticipate a 2 midnight stay in the hospital. This is primarily because of her encephalopathy secondary to her infection. KARLEE: 10/23. Time-Based Coding :: [TOTAL MINUTES] spent with patient and on the chart (including review of chart, obtaining history, exam, reviewing outside data, placing orders, documenting exam and treatment plan, and counseling patient) on [DATE].
[2023-10-23] MEDS: SODIUM CHLORIDE 0.9% 1,000 ML 100 ML IV ×2 (08:00→18:15)
[2023-10-23] MEDS: HEPARIN 5,000 UNIT/ML VIAL 5000 UNIT SUBCUT ×2 (08:28→20:19)
[2023-10-23] MEDS: ACETAMINOPHEN IV 1,000 MG/100 ML VIAL 400 MG IV (08:28)
[2023-10-23] MEDS: NYSTATIN POWDER 15GM 1 APPLIC TOP ×2 (08:29→22:08)
--- NOTE | 2023-10-23 11:24 | CM.DANOTE ---
Initial DCP Assessment Note Pt is a 72 yo female, resident at [facility] on [facility], arrives with decreased LOC, admitted for further work up and management UTI and encephalopathy PCP: Unknown Payer: Ella QUEZADA/ [employer] [facility] Reviewed chart, pt discussed in multidisciplinary rounds this morning. Patient with a psychiatric hx that includes Bipolar disorder, anxiety disorder and MDD. Patient currently prescribed buspirone, seroquel, effexor. All information gleaned from chart as patient is not A+O and cannot reach reza Murillo this morning, no VM set up. RN Nela awaiting a CB from patient's [facility] on [facility]. ED triage note indicates facility staff was with patient upon arrival to the ED and reported patient is A+Ox4 at baseline. CM team will plan to follow clinical course closely. Patient is likely a candidate for return to [facility] , a bedside assessment may be required by their facility RN. Chelsy Hale, Exec Director at [facility] [place] cell P [phone]. [facility] main number P [phone] DOUGLAS Vasques Discharge Planning/Care Management CM Discharge Assessment Start: 10/23/23 11:19 Freq: Status: Active Protocol: Document 10/23/23 11:19 NICHOLAS (Rec: 10/23/23 11:24 NICHOLAS [id number]) Discharge Planning Assessment Assigned Leadership Development Manager DOUGLAS Villanueva DPOA/Assigned Designee Name reza Andrade Contact Information [phone] Advance Directives? No History Provided By Medical Record Comment ER Visit 10/04, returned to facility Prior Living Arrangements Assisted Living Household Members none Type of transporation used prior to Relies on Others admit Facility Name Admitted From: [facility] Assisted Living Independent with ADL's No Is patient alert and oriented? No Comment PLOF unknown Comment Anticipate return to [facility] Discharge Plan Assisted Living Facility Transportation Arrangement Facility van vs [facility]
[2023-10-23 12:00] VITALS: BP 143/87; PULSE 81; RESP 10; TEMP 36.6; O2SAT 93
--- NOTE | 2023-10-23 12:35 | PT.IIE ---
Current Diagnoses Urinary tract infection, site not specified (10/22/23) Medical History (Last Reviewed 10/23/23 @ 07:20 by Noe Zelaya MD) Anxiety disorder Bipolar disorder COPD (chronic obstructive pulmonary disease) Epilepsy Hypertensive heart disease without heart failure Insomnia remote computer terminal operator (current) use of aspirin Major depressive disorder Migraine Morbid obesity due to excess calories Myalgia Oxygen dependent Seasonal allergic rhinitis Unspecified convulsions Unspecified mood [affective] disorder Vitamin B deficiency Vitamin D deficiency Physical Therapy Inpatient Evaluation/Re-Eval M1 PT/OT-IP Prior Functional Status Start: 10/23/23 13:14 Freq: NEEDED Status: Active Protocol: Document 10/23/23 12:35 AB (Rec: 10/23/23 13:28 AB [id number]) Medical Review Prior Functional Status Medical History Reviewed Yes Communication with confusion and inconsistent with follow directions Mobility and Gait unable to get info from pt but per EMR: pt lives at [facility]; when asked, pt confirmed that she uses a FWW but unable to provide any more info Social History Household Members none Living Arrangements Assisted Living Number of Stairs To Enter/Railing? [facility] M2 PT-IP Current Condition Start: 10/23/23 13:14 Freq: NEEDED Status: Active Protocol: Document 10/23/23 12:35 AB (Rec: 10/23/23 13:28 AB [id number]) Physical Therapy Current Condition Current Condition Evaluation Date 10/23/23 Treatment Diagnosis acute metabolic encephalopathy ; difficulty in walking Onset Date 10/22/23 M3 PT-IP Subjective Start: 10/23/23 13:14 Freq: NEEDED Status: Active Protocol: Document 10/23/23 12:35 AB (Rec: 10/23/23 13:28 AB [id number]) Subjective Physical Therapy Visit Type Type Initial Evaluation Visit Start Time 12:35 Visit Stop Time 13:05 Number of ART TEACHER Visits 0 Therapy Pain Assessment Pain When Pain Assessed During Mobility Location bilateral legs Scale Used pain scale not stated Pain Behaviors Calling Out,Crying,Facial Grimacing,Guarding Pain Management Techniques Distraction,Re-positioning M4 PT-IP Mobility and Gait Start: 10/23/23 13:14 Freq: NEEDED Status: Active Protocol: Document 10/23/23 12:35 AB (Rec: 10/23/23 13:28 AB [id number]) PT-Bed Mobility Assessment Sit to Supine Sit to Supine Maximum Assistance,Total Assistance,2 Person Assistance PT-Transfer Assessment Sit to and From Stand Sit to and from Stand Maximum Assistance,2 Person Assistance,Use of Upper Extremities Equipment Transfer Assistive Device Gait Belt,Front Wheeled Walker Orthotic/Prosthetic Devices or Brace: No Transfers Transfer Destination Chair Transfer Technique Stand Step Pivot Transfer Ability Level of Assist Maximum Assistance,1 Person Assistance,2 Person Assistance ,Use of Upper Extremities Comments Mobility Comments per nurse, pt needing assistance to get up to bed. pt with confusion and can get agitated and aggressive and needs redirections. pt unable to provide much info regarding PLOF and home set up. per EMR , pt lives at [facility]. pt completed sit to stand max A x 2 and max cues. step transfer to bed using FWW max A x 1-2 and max cues. pt needing maxA x 2 to total A x 2 for sit to supine. pt can be resistive due to c/o BLE pain even with light touch. positioned pt in bed total A x 2. left pt with NAC. PT-Balance Assessment Sitting Balance and Reactions Static Sitting Balance Ability Fair Dynamic Sitting Balance Ability Fair Standing Balance and Reactions Static Standing Balance Ability Poor Dynamic Standing Balance Ability Poor Device Used FWW M5 PT-IP Objective Assessments Start: 10/23/23 13:14 Freq: NEEDED Status: Active Protocol: Document 10/23/23 12:35 AB (Rec: 10/23/23 13:28 AB [id number]) Orientation Orientation/Cognition Level of Alertness Confusional State Orientation Name Safety Awareness Decreased Safety Awareness Memory Description Short Term Impaired,Advertising Assistant Manager Impaired Gross Range of Motion Lower Extremity ROM Impairments unable to assess: pt resistive and c/o BLE even to light touch Strength Comments Strength Comments unable to assess: pt resistive and c/o BLE even to light touch M6 PT-IP Treatment Start: 10/23/23 13:14 Freq: NEEDED Status: Active Protocol: Document 10/23/23 12:35 AB (Rec: 10/23/23 13:28 AB [id number]) Physical Therapy Treatment Education Education Provided Safety M7 PT-IP Assessment and Plan Start: 10/23/23 13:14 Freq: NEEDED Status: Active Protocol: Document 10/23/23 12:35 AB (Rec: 10/23/23 13:28 AB [id number]) PT Summary Assessment and Plan Potential Rehabilitation Potential Fair Status of Condition at Evaluation Evolving Summary Impairments Pain,ROM,Strength,Balance, Coordination,Sensation,Tone, Cognition,Bed Mobility, Transfers,Gait,Activity Tolerance Assessment Summary pt is a 72 y/o F who presented to the ED for altered mental status. pt admitted for UTI with acute metabolic encephalopathy. pt with confusion and can get easily agitated/aggressive. pt requiring max A x 2 for mobility at this time. recommending a mechanical lift transfers with nursing staff for safety. pt confusion contributing to current mobility level and will likely improve during hospital stay and pt be able to mobilize better. will continue to assess. Goals Bed Mobility Goal Minimal Assistance Transfer Goal Minimal Assistance,Front Wheeled Walker Gait Goal Minimal Assistance,Front Wheel Walker Gait Distance 25 Other Goals improve bed mobility, transfers, ambulation mod I using FWW/LRAD 200 ft Days to Meet Goals 10 Frequency of Treatment Frequency Of Treatment Once a Day Treatment Plan Physical Therapy Treatment Plan Bed Mobility Training,Transfer Training,Gait Training, Therapeutic Exercise,Balance Retraining,Discharge Planning, Hot or Cold Pack,Neuromuscular Re-ed,Coordination Retraining ,Manual Therapy Precautions Other Precautions falls Recommendations To Nursing Amount of Assist Needed Mechanical Lift Discharge Recommendations PT Discharge Recommendations Home with 31/08 Assist Available,Home Health,SNF Rehab Transportation Needs at Discharge Wheelchair/Cabulance
[2023-10-23] MEDS: GABAPENTIN 100 MG CAPSULE 200 MG PO ×2 (14:14→20:18)
[2023-10-23] MEDS: VENLAFAXINE ER 75 MG CAP 150 MG PO (14:14)
[2023-10-23] MEDS: DIVALPROEX DR 250 MG TABLET 500 MG PO (14:14)
[2023-10-23] MEDS: ASPIRIN EC 325 MG TABLET PO (14:14)
[2023-10-23] MEDS: BUSPIRONE 5 MG TABLET 15 MG PO ×2 (14:15→20:19)
[2023-10-23] MEDS: MAGNESIUM OXIDE 400 MG TABLET PO (14:15)
[2023-10-23] MEDS: TRAMADOL 50 MG TABLET 25 MG PO (14:15)
[2023-10-23 14:32] LABS: Basophils Absolute Auto 0 /uL (0-100); Basophils Percent Auto 0.5 % (0-2); Eosinophils Absolute Auto 100 /uL (0-450); Eosinophils Percent Auto 0.9 % (2-4); Hematocrit 29.4 % (36-46); Hemoglobin 8.7 g/dL (12.0-16.0); Lymphocytes Absolute Auto 1500 /uL (1100-4500); Lymphocytes Percent Auto 18.6 % (25-40); Mean Corpuscular HGB Conc 29.6 % (30-36); Monocytes Absolute Auto 1300 /uL (0-900); Monocytes Percent Auto 16.6 % (3-14); Neutrophils Absolute Auto 5100 /uL (1500-7000); Neutrophils Percent Auto 63.4 % (50-75); Platelet Count 270 X10^3/uL (150-400); Red Blood Cell Count 4.14 X10^6/uL (4.0-5.2); Red Cell Distribution Width 27.5 % (11.6-14.8)
[2023-10-23 14:33] LABS: Add Manual Diff / Slide Review SLIDE REVIEW
[2023-10-23 14:44] LABS: BUN Creatinine Ratio 35.7 (6-22); Blood Urea Nitrogen 15 mg/dL (7-17); Calcium 7.8 mg/dL (8.4-10.2); Carbon Dioxide 30 mmol/L (22-32); Chloride 100 mmol/L (98-107); Estimated Glomerular Filt Rate > 60 mL/min (>60); Glucose 107 mg/dL (80-110); HEMOLYSIS 43 (0-50); Potassium 4.1 mmol/L (3.4-5.1); Sodium 132 mmol/L (137-145)
[2023-10-23 15:19] LABS: Anisocytosis 3+; Hypochromasia 1+; Target Cells 1+
[2023-10-23 18:00] VITALS: BP 133/77; PULSE 92; RESP 16; TEMP 37; O2SAT 94
[2023-10-23] MEDS: cefTRIAXone 1,000 MG in SODIUM CHLORIDE 0.9% 100 ML 200 MG IV (18:14)
[2023-10-23] MEDS: QUETIAPINE 25 MG TABLET 50 MG PO (20:18)
[2023-10-23] MEDS: DIVALPROEX DR 250 MG TABLET 1000 MG PO (20:18)
[2023-10-23] MEDS: SENNOSIDES 8.6 MG TABLET 17.2 MG PO (20:19)
[2023-10-23] MEDS: HYDROCODONE/ACET 5/325 TABLET 2 TAB PO (20:34)
[2023-10-23 21:56] VITALS: BP 107/70; PULSE 80; RESP 16; TEMP 36.3; O2SAT 95
--- NOTE | 2023-10-23 22:23 | PC.NURSE ---
maintenance supervisor 2nd shift: Patient is alert to self & place, patient is tearful/agitated and reports pain in her skin when being touched, primarily in her legs. Patient was tearful and expressed that she wanted to leave and go to [facility] while repositioning. Medicated & repositioned for comfort. Patient currently resting in bed with eyes closed, respirations even and unlabored. MD notified of patient expression. Plan of care ongoing.
[2023-10-24] MEDS: SODIUM CHLORIDE 0.9% 1,000 ML 100 ML IV ×2 (04:48→15:24)
--- NOTE | 2023-10-24 07:28 | PM.PN.1 ---
Subjective Subjective Interval history: 72-year-old female with history of possible bipolar was admitted with urinary tract infection and confusion. Her [id number] is her POA, she was in [place]. She was asking for consideration of hospice. S: She has been talking about going home to [place] overnight. I spoke with her power of attorney law clerk, and [id number] in [place] yesterday. She requested 2 things: MRI of brain to rule out stroke as well as a hospice referral. The patient has pain all over her body. Exam Vital Signs (past 8 hours): Oxygen Delivery Method Nasal Cannula Oxygen Flow Rate 0 Narrative Exam Narrative: NAD, somnolent and oriented. Soft speech. Lungs are clear, normal rate and effort. Heart is regular, no murmur gallop or rub. Abdomen is soft, non distended. Extremities are with 1+ edema. Objective ECG Impression: Impression: Normal sinus rhythm Left axis deviation Cannot rule out Anterior infarct , age undetermined Imaging Multiple studies:: Radiologist's impression: Head CT: Pattern of atrophy, unchanged. Moderate chronic small vessel ischemic changes, unchanged. No CT evidence of intracranial hemorrhage. If symptoms persist or worsen, or there is high clinical suspicion of intracranial abnormality, MRI brain could be performed. Chest abdomen and pelvis CT: Vlxn-rq-xmdplnzl nonspecific wall thickening of the colon as discussed above suspicious for colitis. Follow-up suggested. Moderate cardiomegaly. Opjf-xe-drifntot bilateral peribronchial thickening with diffuse patchy ground-glass opacities as discussed above. Mild pulmonary vascular congestion and mild interstitial edema. Status post cholecystectomy with extrahepatic and intrahepatic biliary ductal dilatation as discussed above. Mild nonspecific wall thickening of the urinary bladder. Other chronic findings as described above. Follow-up suggested. Chest x-ray: No acute cardiopulmonary abnormality is seen. Labs 10/24/23 08:30 10/24/23 08:30 Labs: Laboratory Results - last 24 hr 10/23/23 14:15 WBC 8.0 RBC 4.14 Hgb 8.7 L Hct 29.4 L MCV 71.0 L MCH 21.0 L MCHC 29.6 L RDW 27.5 H Plt Count 270 Neut % (Auto) 63.4 Lymph % (Auto) 18.6 L [place] % (Auto) 16.6 H Eos % (Auto) 0.9 L Baso % (Auto) 0.5 Neut # (Auto) 5100 Lymph # (Auto) 1500 [place] # (Auto) 1300 H Eos # (Auto) 100 Baso # (Auto) 0 RBC Morphology See below Hypochromasia 1+ H Anisocytosis 3+ H Target Cells 1+ H Sodium 132 L Potassium 4.1 Chloride 100 Carbon Dioxide 30 BUN 15 Creatinine 0.42 L Estimated GFR > 60 BUN/Creatinine Ratio 35.7 H Glucose 107 Calcium 7.8 L PFSH Medical History senior living (current) use of aspirin Unspecified convulsions Myalgia Seasonal allergic rhinitis Hypertensive heart disease without heart failure Insomnia Migraine Anxiety disorder Unspecified mood [affective] disorder Major depressive disorder Vitamin D deficiency Vitamin B deficiency Epilepsy Bipolar disorder Morbid obesity due to excess calories Oxygen dependent COPD (chronic obstructive pulmonary disease) Social History household members: none Smoking Status: Unknown if ever smoked Assessment & Plan Assessment & Plan narrative: 1. Urinary tract infection, present on admission and active. Culture as posted 3+ mixed hernandez. 2. Septic encephalopathy, present on admission and active. 3. COPD with chronic hypoxic respiratory failure, present on admission and active. 4. History of migraine, present on admission and not active. 5. Mood disorder, present on admission and active. 6. Obesity class 2 with BMI of 36, present on admission and active. Plan: -continue IV fluids -IV antibiotics, ceftriaxone. Follow blood cultures. -monitor mental status. -O2 a usual setting of 2 L. -MRI brain to rule out stroke per family's request. -hospice referral. Patient was full resuscitation. Inpatient status, anticipate a 2 midnight stay in the hospital. This is primarily because of her encephalopathy secondary to her infection. KARLEE is 10/24. Time-Based Coding :: [TOTAL MINUTES] spent with patient and on the chart (including review of chart, obtaining history, exam, reviewing outside data, placing orders, documenting exam and treatment plan, and counseling patient) on [DATE].
[2023-10-24 08:00] VITALS: BP 132/66; PULSE 76; RESP 16; TEMP 36.2; O2SAT 100
[2023-10-24] MEDS: ALBUTEROL 2.5 MG/3 ML NEB (ADULT) INH (08:29)
[2023-10-24 08:30] VITALS: PULSE 68; RESP 18; O2SAT 100
[2023-10-24] MEDS: IPRATROPIUM 0.5 MG/2.5 ML NEB INH ×2 (08:30→15:53)
[2023-10-24 08:41] LABS: Add Manual Diff / Slide Review SLIDE REVIEW; Basophils Absolute Auto 100 /uL (0-100); Basophils Percent Auto 1.2 % (0-2); Eosinophils Absolute Auto 200 /uL (0-450); Eosinophils Percent Auto 3.6 % (2-4); Hematocrit 30.3 % (36-46); Hemoglobin 8.9 g/dL (12.0-16.0); Lymphocytes Absolute Auto 2700 /uL (1100-4500); Lymphocytes Percent Auto 42.6 % (25-40); Mean Corpuscular HGB Conc 29.3 % (30-36); Mean Corpuscular Hemoglobin 20.9 PG (26-34); Mean Corpuscular Volume 71.2 fL (80-100); Monocytes Absolute Auto 500 /uL (0-900); Monocytes Percent Auto 8.4 % (3-14); Neutrophils Absolute Auto 2800 /uL (1500-7000); Neutrophils Percent Auto 44.2 % (50-75); Platelet Count 269 X10^3/uL (150-400); Red Blood Cell Count 4.25 X10^6/uL (4.0-5.2); Red Cell Distribution Width 27.4 % (11.6-14.8); White Blood Cell Count 6.4 X10^3/uL (4.5-11.0)
[2023-10-24 08:55] LABS: BUN Creatinine Ratio 29.3 (6-22); Blood Urea Nitrogen 12 mg/dL (7-17); Calcium 7.7 mg/dL (8.4-10.2); Carbon Dioxide 30 mmol/L (22-32); Chloride 102 mmol/L (98-107); Estimated Glomerular Filt Rate > 60 mL/min (>60); Glucose 88 mg/dL (80-110); HEMOLYSIS 20 (0-50); Potassium 3.3 mmol/L (3.4-5.1); Sodium 133 mmol/L (137-145)
--- NOTE | 2023-10-24 09:15 | PT-IP ANOTE ---
Attempted to see pt this AM, pt refused PT staiting Every bone in my body hurts and I just want to go. RN notified.
--- NOTE | 2023-10-24 09:23 | DI.MRI.S_ITS ---
PROCEDURE: MR HEAD/BRAIN WO CON INDICATIONS: altered mental status, rule out CVA TECHNIQUE: Non-contrast axial T1 spin echo, axial T2 fast spin echo, sagittal and axial FLAIR, coronal T2 fast spin echo, axial gradient echo, axial diffusion and ADC through the brain. COMPARISON: [facility], CT, CT HEAD/BRAIN WO CON, 10/22/2023, 13:46. FINDINGS: Image quality: Diagnostic CSF spaces: Ventricles appear symmetric in size and shape. Basal cisterns are patent. No extra-axial fluid collections. Brain: No intracranial bleeds or mass effects. There is cerebral volume loss for age. There are periventricular and deep white matter chronic small vessel ischemic changes. Brainstem appears normal. Diffusion-weighted images show no acute infarct. No chronic ischemic insults. Normal intravascular flow voids are present. Skull and face: Calvarial bone marrow is normal in signal. Orbits are normal. Sinuses: Sinuses and mastoids are clear. IMPRESSION: MRI brain without acute intracranial abnormalities. No evidence for acute cerebral infarction. Stable age related senescent changes and sequela of chronic small vessel ischemic disease. Dictated by: Kirk Jean M.D. on 10/24/2023 at 9:58 Approved by: Kirk Jean M.D. on 10/24/2023 at 10:03
[2023-10-24] MEDS: GABAPENTIN 100 MG CAPSULE 200 MG PO ×2 (09:46→22:22)
[2023-10-24] MEDS: HYDROCODONE/ACET 5/325 TABLET 2 TAB PO (09:46)
[2023-10-24] MEDS: VENLAFAXINE ER 75 MG CAP 150 MG PO (09:47)
[2023-10-24] MEDS: BUSPIRONE 5 MG TABLET 15 MG PO ×2 (09:47→22:22)
[2023-10-24] MEDS: MAGNESIUM OXIDE 400 MG TABLET PO (09:47)
[2023-10-24] MEDS: ASPIRIN EC 325 MG TABLET PO (09:47)
[2023-10-24] MEDS: HEPARIN 5,000 UNIT/ML VIAL 5000 UNIT SUBCUT ×2 (09:48→22:23)
[2023-10-24] MEDS: POTASSIUM CHLORIDE 20 MEQ TAB 40 MEQ PO (09:48)
[2023-10-24] MEDS: DIVALPROEX DR 250 MG TABLET 500 MG PO (09:49)
[2023-10-24 11:42] LABS: Anisocytosis 3+; Hypochromasia 1+
--- NOTE | 2023-10-24 14:46 | CM.DPNOTE ---
DCP Note TECHNICAL CABLE JOINTER reviewed EMR. Per chart review/RN report/ provider report, pt expresses wanting to go to [facility] and is in a lot of pain. Per provider in morning rounds, pt KONSTANTIN Abbott is POA and was hopeful for a hospice referral. TECHNICAL CABLE JOINTER spoke with KONSTANTIN Abbott ([phone]) who also claims to have DPOA with pt's son, Prem. KONSTANTIN reports son Chidi is not involved and should be taken off contact list. Per Milena, pt hates hospitalist and just wants to not be in pain anymore. Lives at [facility] where she has not left for many years, hx of opioid misuse. Interested in hospice services for her MIL. Report [facility] would have copies of healthcare and financial POA. Report verbal understanding there may be a bill associated with BLS transport and agree that it might be the safest way to transport pt. TECHNICAL CABLE JOINTER answered questions to best of ability. TECHNICAL CABLE JOINTER talked with Rimma from [facility], agreed to review referral. TECHNICAL CABLE JOINTER faxed referral information with contact for KONSTANTIN Abbott for info visit. Unable to speak with someone (Likely Chelsy Hale, Exec Director at [facility] on [employer] [place] cell P [phone]. [facility] on [employer] main number P [phone]) at [facility] due to it being a Wednesday. TECHNICAL CABLE JOINTER attempted to meet with pt in room, not alert enough for appropriate DCP conversation. P: anticipate return to [facility] with [facility] support via BLS. CM team will continue to follow closely for arrangements of [facility]. DOUGLAS Winters
[2023-10-24 15:53] VITALS: PULSE 83; RESP 16; O2SAT 97
[2023-10-24] MEDS: cefTRIAXone 1,000 MG in SODIUM CHLORIDE 0.9% 100 ML 200 MG IV (17:20)
[2023-10-24] MEDS: NYSTATIN POWDER 15GM 1 APPLIC TOP ×2 (17:21→22:32)
[2023-10-24] MEDS: SENNOSIDES 8.6 MG TABLET 17.2 MG PO (22:22)
[2023-10-24] MEDS: DIVALPROEX DR 250 MG TABLET 1000 MG PO (22:22)
[2023-10-24] MEDS: QUETIAPINE 25 MG TABLET 50 MG PO (22:22)
[2023-10-24 22:28] VITALS: BP 103/61; PULSE 99; RESP 18; TEMP 36.7; O2SAT 95
[2023-10-25] MEDS: LEVOTHYROXINE 100 MCG TABLET PO (05:30)
[2023-10-25] MEDS: SODIUM CHLORIDE 0.9% 1,000 ML 100 ML IV ×2 (06:04→17:47)
[2023-10-25 06:09] VITALS: BP 127/65; PULSE 96; RESP 18; TEMP 36.6; O2SAT 97
[2023-10-25 06:29] LABS: Add Manual Diff / Slide Review NO; BUN Creatinine Ratio 22.7 (6-22); Basophils Absolute Auto 0 /uL (0-100); Basophils Percent Auto 0.5 % (0-2); Blood Urea Nitrogen 10 mg/dL (7-17); Calcium 7.3 mg/dL (8.4-10.2); Carbon Dioxide 29 mmol/L (22-32); Chloride 103 mmol/L (98-107); Eosinophils Absolute Auto 300 /uL (0-450); Eosinophils Percent Auto 3.7 % (2-4); Estimated Glomerular Filt Rate > 60 mL/min (>60); Glucose 75 mg/dL (80-110); HEMOLYSIS 30 (0-50); Hematocrit 28.9 % (36-46); Hemoglobin 8.7 g/dL (12.0-16.0); Lymphocytes Absolute Auto 2400 /uL (1100-4500); Lymphocytes Percent Auto 32.4 % (25-40); Mean Corpuscular Hemoglobin 21.2 PG (26-34); Mean Corpuscular Volume 70.8 fL (80-100); Monocytes Absolute Auto 1000 /uL (0-900); Monocytes Percent Auto 14.1 % (3-14); Neutrophils Absolute Auto 3600 /uL (1500-7000); Neutrophils Percent Auto 49.3 % (50-75); Platelet Count 181 X10^3/uL (150-400); Red Blood Cell Count 4.08 X10^6/uL (4.0-5.2); Red Cell Distribution Width 27.3 % (11.6-14.8); Sodium 133 mmol/L (137-145); White Blood Cell Count 7.3 X10^3/uL (4.5-11.0)
[2023-10-25 06:36] LABS: Dimorphic RBC PRESENT
[2023-10-25 07:00] VITALS: BP 126/68; PULSE 97; RESP 12; TEMP 36.9; O2SAT 95
[2023-10-25] MEDS: IPRATROPIUM 0.5 MG/2.5 ML NEB INH (07:25)
[2023-10-25 07:59] VITALS: PULSE 94; RESP 20; O2SAT 98
--- NOTE | 2023-10-25 08:43 | PC.NURSE ---
Addendum entered by Zora Reynolds R.N. 10/25/23 17:57: Patient offered pain medication but denied pain. Addendum entered by Zora Reynolds R.N. 10/25/23 10:27: Will give patients medications when she is more awake, she keeps falling asleep and is not oriented at this time Original Note: Patient is confused and talking to herself. She denies pain, repositioned for breakfast and patient is eating her food slowly. She has multiple skin issues that can be seen under physical assessment in Skin section. Patient and family are planning on doing a hospice referral.
--- NOTE | 2023-10-25 10:11 | PT-IP ANOTE ---
Discussed pt in rounds and pt to d/c with hospice next date, requires two person to guillermo assistance and is appropriate to d/c acute PT.
--- NOTE | 2023-10-25 10:26 | OT.IPNOTE ---
Pt discussed in rounds. Pt is max x 2 and now planned for discharge home to [facility] with hospice care. Will discharge pt from OT services per rounds discussion.
[2023-10-25] MEDS: HEPARIN 5,000 UNIT/ML VIAL 5000 UNIT SUBCUT ×2 (11:11→20:08)
[2023-10-25] MEDS: DIVALPROEX DR 250 MG TABLET 500 MG PO (11:12)
[2023-10-25] MEDS: MAGNESIUM OXIDE 400 MG TABLET PO (11:12)
[2023-10-25] MEDS: GABAPENTIN 100 MG CAPSULE 200 MG PO ×2 (11:12→20:08)
[2023-10-25] MEDS: BUSPIRONE 5 MG TABLET 15 MG PO ×2 (11:12→20:08)
[2023-10-25] MEDS: NYSTATIN POWDER 15GM 1 APPLIC TOP ×2 (11:13→20:13)
[2023-10-25] MEDS: VENLAFAXINE ER 75 MG CAP 150 MG PO (11:13)
[2023-10-25] MEDS: ASPIRIN EC 325 MG TABLET PO (11:14)
--- NOTE | 2023-10-25 13:02 | CM.DPNOTE ---
DCP Note NEWSPAPER PHOTOGRAPHER reviewed EMR. Per Maritza at [facility] on [address], able to take pt back on hospice support. Will fax POA paperwork to for our records. Maritza reports they do not have able to do mechanical lift and transport would need to be BLS. KIRSTIN mir agreed to fax them updated clinicals (f [phone]). Per Maritza, nurse Erinn ([phone]) will be on sight to assist pt in getting from BLS to bed in room. KIRSTIN Ingram scanned POA paperwork into chart. Per Dunia at [facility], able to have SOC sooner than [facility]. KIRSTIN Ingram kindly agreed to send referral information. Working on delivering bed, bedside table, bedside commode, and oxygen to [facility] Wednesday with SOC planned for Wednesday at 1100. NEWSPAPER PHOTOGRAPHER canceled referral with Liyl at [facility]. NEWSPAPER PHOTOGRAPHER had multiple lengthy conversations with DIL/ISREAL Abbott ([phone]) over phone. Reviewed plan for [facility] to start care 11am Wednesday at the facility with equipment being delivered Wednesday. Reviewed plan for BLS, DIL expressed verbal understanding for potential bill with BLS. NEWSPAPER PHOTOGRAPHER reviewed POLST form, Milena will sign and email completed POLST ([email or web address]). NEWSPAPER PHOTOGRAPHER assisted DIL and pt being able to talk briefly on phone in room. NEWSPAPER PHOTOGRAPHER attempted to review plan with pt, pt not A/O enough for productive DCP conversation. able to say a few words to DIL on hospital phone in room and listed to her. NEWSPAPER PHOTOGRAPHER completed [facility] and POLST form with hospitalist signature. Per Shanta at [facility], scheduled transport for 10/26 to [facility]. P: [facility] to deliver bed, oxygen, table, and bedside commode Wednesday to [facility]. [facility] to p/u pt Thursday 10/26 at 0930. [facility] to open at 1100. POLST needed from DIL. CM team will continue to follow closely DOUGLAS Winters
[2023-10-25] MEDS: cefTRIAXone 1,000 MG in SODIUM CHLORIDE 0.9% 100 ML 200 MG IV (17:48)
[2023-10-25 19:08] VITALS: PULSE 76; O2SAT 100
--- NOTE | 2023-10-25 19:14 | P.PN_ITS ---
Subjective Subjective Interval history: 72-year-old female with history of possible bipolar was admitted with urinary tract infection and confusion. Her hkeublzy-zh-nwp is her POA, she was in [place]. She was asking for consideration of hospice. S: Patient is without complaints today. She denies pain to me. I received a call from her POA who reported the patient was in pain and was requesting pain medications. In discussion with the nursing staff patient has consistently denied pain today, and currently appears comfortable. Exam Vital Signs (past 8 hours): Fraction of Inspired Oxygen 22 SaO2/FiO2 Ratio 445 Oxygen Delivery Method Nasal Cannula Oxygen Flow Rate 0.5 Narrative Exam Narrative: NAD, somnolent and oriented to name and possibly hospital, though all numbered responses related to time are three twenty two. Soft speech. Lungs are clear, normal rate and effort. Heart is regular, no murmur gallop or rub. Abdomen is soft, non distended. Extremities are without edema Objective Labs 10/25/23 05:55 10/25/23 05:55 Labs: Laboratory Results - last 24 hr 10/25/23 05:55 WBC 7.3 RBC 4.08 Hgb 8.7 L Hct 28.9 L MCV 70.8 L MCH 21.2 L MCHC 30.0 RDW 27.3 H Plt Count 181 Neut % (Auto) 49.3 L Lymph % (Auto) 32.4 [place] % (Auto) 14.1 H Eos % (Auto) 3.7 Baso % (Auto) 0.5 Neut # (Auto) 3600 Lymph # (Auto) 2400 [place] # (Auto) 1000 H Eos # (Auto) 300 Baso # (Auto) 0 RBC Morphology Not Reportable Dimorphic RBCs Present Sodium 133 L Potassium 4.0 Chloride 103 Carbon Dioxide 29 BUN 10 Creatinine 0.44 L Estimated GFR > 60 BUN/Creatinine Ratio 22.7 H Glucose 75 L Calcium 7.3 L [facility] Medical History assisted (current) use of aspirin Unspecified convulsions Myalgia Seasonal allergic rhinitis Hypertensive heart disease without heart failure Insomnia Migraine Anxiety disorder Unspecified mood [affective] disorder Major depressive disorder Vitamin D deficiency Vitamin B deficiency Epilepsy Bipolar disorder Morbid obesity due to excess calories Oxygen dependent COPD (chronic obstructive pulmonary disease) Social History household members: none Smoking Status: Unknown if ever smoked Assessment & Plan Assessment & Plan narrative: 1. Acute cystitis, present on admission and active. Culture as posted 3+ mixed hernandez. 2. Acute metabolic encephalopathy secondary to #1, present on admission and active. 3. COPD with chronic hypoxic respiratory failure, present on admission and active. 4. History of migraine, present on admission and not active. 5. Mood disorder, present on admission and active. 6. Obesity class 2 with BMI of 36, present on admission and active. Plan: -stop IV fluids -IV antibiotics, ceftriaxone. -monitor mental status, minimal change. -O2 a usual setting of 2 L. -MRI brain to rule out stroke per family's request which was negative for acute infarct. -hospice referral. -monitor for pain. Patient was full resuscitation. Inpatient status, anticipate a 2 midnight stay in the hospital. This is primarily because of her encephalopathy secondary to her infection. Dispo: pending return to assisted living facility on hospice, likely on 10/26. Time-Based Coding :: [TOTAL MINUTES] spent with patient and on the chart (including review of chart, obtaining history, exam, reviewing outside data, placing orders, documenting exam and treatment plan, and counseling patient) on [DATE].
[2023-10-25 20:00] VITALS: BP 134/69; PULSE 93; RESP 16; TEMP 36.1; O2SAT 99
[2023-10-25] MEDS: DIVALPROEX DR 250 MG TABLET 1000 MG PO (20:08)
[2023-10-25] MEDS: QUETIAPINE 25 MG TABLET 50 MG PO (20:08)
[2023-10-25] MEDS: SENNOSIDES 8.6 MG TABLET 17.2 MG PO (20:09)
[2023-10-26] MEDS: LEVOTHYROXINE 100 MCG TABLET PO (05:38)
--- NOTE | 2023-10-26 06:18 | PC.NURSE ---
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 VSS, SpO2 in mid 90's on 1L NC. Denies pain at rest, although reports pain in BLE when touched. Medicated & repositioned for comfort. Skin care performed. Refused morning labs, attempted to push away staff & yelled go away. Notified MD of patient refusal.
[2023-10-26 07:00] VITALS: O2SAT 95
[2023-10-26 08:35] VITALS: BP 143/69; PULSE 84; RESP 20; TEMP 36.3; O2SAT 99
[2023-10-26] MEDS: HEPARIN 5,000 UNIT/ML VIAL 5000 UNIT SUBCUT ×2 (09:33→21:11)
[2023-10-26] MEDS: DIVALPROEX DR 250 MG TABLET 500 MG PO (09:33)
[2023-10-26] MEDS: VENLAFAXINE ER 75 MG CAP 150 MG PO (09:34)
[2023-10-26] MEDS: GABAPENTIN 100 MG CAPSULE 200 MG PO (09:34)
[2023-10-26] MEDS: ASPIRIN EC 325 MG TABLET PO (09:34)
[2023-10-26] MEDS: BUSPIRONE 5 MG TABLET 15 MG PO (09:34)
[2023-10-26] MEDS: MAGNESIUM OXIDE 400 MG TABLET PO (09:34)
--- NOTE | 2023-10-26 11:30 | PC.NURSE ---
Patient took her medications, and is now napping.
--- NOTE | 2023-10-26 16:25 | CM.DPNOTE ---
DCP Note SERVICE STATION EQUIPMENT MECHANIC reviewed EMR. SERVICE STATION EQUIPMENT MECHANIC spoke with Erinn (p [phone]) from [facility], all set to accept pt tomorrow, DME scheduled to be delivered today. SERVICE STATION EQUIPMENT MECHANIC spoke with Dunia at [facility] ([phone] and f [phone]). Need signed consents from family and all should be good to open 11am Wednesday at [facility]. SERVICE STATION EQUIPMENT MECHANIC spoke with Courtney (p [phone]) often throughout the day. Emailed the signed hospice consent forms and signed POLST. In agreement with DCP. Report verbal understanding their may be a bill associated with [facility] transport. SERVICE STATION EQUIPMENT MECHANIC, with the assistance of the coordinator cell phone, arranged for a group call for pt and family in room. Family appreciative. Pt waxes and wanes in alertness, minimally verbally responsive to family over the phone. SERVICE STATION EQUIPMENT MECHANIC faxed POA paperwork and hospice consent forms to [facility]. Physical copies of hospice consent forms and POA paperwork behind FS. SERVICE STATION EQUIPMENT MECHANIC placed FS, POLST, and [facility] form in chart. P: DC tomorrow 10/26 via [facility] at 0930 to [facility]. [facility] to open at 11am. CM team will continue to follow closely DOUGLAS Winters
[2023-10-26] MEDS: cefTRIAXone 1,000 MG in SODIUM CHLORIDE 0.9% 100 ML 200 MG IV (18:17)
--- NOTE | 2023-10-26 18:17 | PM.PN.1 ---
Subjective Subjective Interval history: 72-year-old female with history of possible bipolar was admitted with urinary tract infection and confusion. Her [id number] is her POA, she was in [place]. She was asking for consideration of hospice. S: Patient is without complaints today. She has been sleepy a lot of the day. Denied pain. Exam Vital Signs (past 8 hours): Fraction of Inspired Oxygen 24 SaO2/FiO2 Ratio 416 Oxygen Delivery Method Nasal Cannula Oxygen Flow Rate 1 Narrative Exam Narrative: NAD, somnolent and oriented to name and possibly hospital, though not the date at all. Lungs are clear, normal rate and effort. Heart is regular, no murmur gallop or rub. Abdomen is soft, non distended. Extremities are without edema Objective Labs 10/25/23 05:55 10/25/23 05:55 [facility] Medical History rodent exterminator (current) use of aspirin Unspecified convulsions Myalgia Seasonal allergic rhinitis Hypertensive heart disease without heart failure Insomnia Migraine Anxiety disorder Unspecified mood [affective] disorder Major depressive disorder Vitamin D deficiency Vitamin B deficiency Epilepsy Bipolar disorder Morbid obesity due to excess calories Oxygen dependent COPD (chronic obstructive pulmonary disease) Social History household members: none Smoking Status: Unknown if ever smoked Assessment & Plan Assessment & Plan narrative: 1. Acute cystitis, present on admission and active. Culture as posted 3+ mixed hernandez. 2. Acute metabolic encephalopathy secondary to #1, present on admission and active. 3. COPD with chronic hypoxic respiratory failure, present on admission and active. 4. History of migraine, present on admission and not active. 5. Mood disorder, present on admission and active. 6. Obesity class 2 with BMI of 36, present on admission and active. Plan: -stopped IV fluids -IV antibiotics, ceftriaxone. -monitor mental status, minimal change. -O2 a usual setting of 2 L. -MRI brain to rule out stroke per family's request which was negative for acute infarct. -hospice referral. -monitor for pain. Patient was full resuscitation. Inpatient status, anticipate a 2 midnight stay in the hospital. This is primarily because of her encephalopathy secondary to her infection. Dispo: pending return to assisted living facility on hospice, currently planned for 10/26. Time-Based Coding :: [TOTAL MINUTES] spent with patient and on the chart (including review of chart, obtaining history, exam, reviewing outside data, placing orders, documenting exam and treatment plan, and counseling patient) on [DATE].
[2023-10-26 20:00] VITALS: BP 134/66; PULSE 86; RESP 12; TEMP 36.4; O2SAT 99
[2023-10-26] MEDS: SODIUM CHLORIDE 0.9% FLUSH 10 ML IV (21:13)
--- NOTE | 2023-10-26 21:46 | PC.NURSE ---
Jett. attempts made by this nurse to administer PM medications and at one point clinched her jaw when nurse made an attempt. Patient was given apple sauce and umu. pudding to use as a carrier with her pill, but patient cont. to refuse. States she doesn't like the taste. Patient went on to also say, why cant he just take his own meds.
[2023-10-26 22:24] VITALS: O2SAT 95
[2023-10-27] MEDS: TRAMADOL 50 MG TABLET 25 MG PO (03:34)
[2023-10-27] MEDS: LEVOTHYROXINE 100 MCG TABLET PO (05:59)
[2023-10-27 07:00] VITALS: BP 137/80; PULSE 93; RESP 18; TEMP 36.8; O2SAT 92
--- NOTE | 2023-10-27 07:04 | PC.NURSE ---
Agitated this morning, refusing her Oxygen & refused to turn on her side.
[2023-10-27 08:00] VITALS: O2SAT 94
--- NOTE | 2023-10-27 08:10 | PM.DS.1 ---
History of Present Illness History of Present Illness Date Patient Seen: 10/27/23 Time Patient Seen: 08:38 Chief complaint: Decreased LOC Narrative: Per admitting provider, The patient is a 72-year-old female with COPD and home oxygen. She also has a history of obesity, migraines, and mood disorder. She presented today with altered mental status and was found to have evidence of a urinary tract infection in the emergency department. She was also found to be pale, lethargic, and have a fever of 100.1. The patient does note dysuria and lower abdominal pain. This loud sounds and any touch of her legs. She was quite irritable and not very willing to participate in questions. She did deny any dyspnea, cough, or chest pain. Discharge Providers Provider Date of admission: 10/22/23 17:11 Discharge Date: 10/27/23 Consults: 10/23/23 12:27 Consult to Occupational Therapy Evaluate & Treat Comment: Physician Instructions: Evaluate and treat Consult to Physical Therapy Evaluate & Treat Comment: Physician Instructions: Evaluate and Treat Discharge provider: Lukasz Landers DO Summary Hospital Course Discharge Diagnosis: 1. Acute cystitis, present on admission and active. Culture as posted 3+ mixed hernandez. 2. Acute metabolic encephalopathy secondary to #1, present on admission and active. 3. COPD with chronic hypoxic respiratory failure, present on admission and active. 4. History of migraine, present on admission and not active. 5. Mood disorder, present on admission and active. 6. Obesity class 2 with BMI of 36, present on admission and active. Hospital Course: This is a 72 year old female with PMH of COPD on home O2, mood disorder, obesity who presented with altered mental status. Evaluation showed a UTI, but patient did not have improvement with antibiotic therapies. After goals of care discussions with the patient's POA, patient was transferred home with hospice. Patient has completed course of antibiotics for an acute cystitis here in the hospital. Etiology of encephalopathy may represent ongoing mood disorder, though it was not entirely clear at the time of discharge. She was provided with supportive medications with focus on comfort, required a dose of ativan for severe anxiety prior to discharge on ambulance. Time Spent with Patient Time spent: Greater than 30 minutes Exam Vital Signs (past 8 hours): - 10/27/23 08:00 Pulse Oximetry 94 Oxygen Delivery Method Nasal Cannula Oxygen Flow Rate 2 Fraction of Inspired Oxygen 24 SaO2/FiO2 Ratio 395 Oxygen Delivery Method Nasal Cannula Oxygen Flow Rate 2 Narrative Exam Narrative: NAD, somnolent, agitated. Lungs are clear, normal rate and effort. Heart is regular, no murmur gallop or rub. Abdomen is soft, non distended. Extremities are without edema Objective Labs 10/25/23 05:55 10/25/23 05:55 [facility]SH Medical History residential (current) use of aspirin Unspecified convulsions Myalgia Seasonal allergic rhinitis Hypertensive heart disease without heart failure Insomnia Migraine Anxiety disorder Unspecified mood [affective] disorder Major depressive disorder Vitamin D deficiency Vitamin B deficiency Epilepsy Bipolar disorder Morbid obesity due to excess calories Oxygen dependent COPD (chronic obstructive pulmonary disease) Social History household members: none Smoking Status: Unknown if ever smoked Discharge Plan Discharge Plan Patient Disposition: Hospice - Home Transfer to: [facility] Provider Discharge Comment: 72 F admitted with encephalopathy, likely due to UTI. Completed course of antibiotics here in the hospital, still remains confused. After goals of care discussions, elected for discharge home with hospice. Patient's POA is concerned about pain control, asking for fentanyl patch, but is not currently complaining of pain. Recommend continued pain management with hospice services. She also refuses many of her home medications. No changes are currently recommended, but management moving forward can move toward a focus of comfort. Discharge orders & Medications Prescriptions: Continued ondansetron HCl 4 mg Tablet 4 mg PO Q8H PRN (Reason: nausea/vomiting) divalproex 500 mg Tablet,Delayed Release (Dr/Ec) 1,000 mg PO BEDTIME triamcinolone acetonide 0.1 % Cream 1 applic TOPICAL BID Rx Instructions: Left thigh bid divalproex 500 mg Tablet Extended Release 24 Hr 500 mg PO QAM albuterol sulfate [ProAir HFA] 90 mcg/actuation Hfa Aerosol Inhaler 2 puff INHALATION Q4-6H PRN (Reason: Shortness Of Breath) acetaminophen 500 mg Capsule 1,000 mg PO Q8HR buspirone 15 mg Tablet 15 mg PO BID cholecalciferol (vitamin D3) [Vitamin D3] 25 mcg (1,000 unit) Capsule 25 mcg PO QAM tiotropium bromide [Spiriva with HandiHaler] 18 mcg Capsule, W/Inhalation Device 1 cap INHALATION BEDTIME Rx Instructions: puncture 1 cap using device; one dose = 2 inhalations gabapentin 100 mg Tablet 200 mg PO BID ferrous gluconate 324 mg (36 mg iron) Tablet 324 mg PO DAILY Rx Instructions: started 09/25/23 venlafaxine 150 mg Tablet Extended Release 24hr 150 mg PO DAILY levothyroxine 100 mcg Capsule 100 mcg PO DAILY magnesium oxide 400 mg magnesium Capsule 400 mg PO DAILY aspirin 325 mg Tablet 325 mg PO DAILY quetiapine [Seroquel] 50 mg Tablet 50 mg PO BEDTIME Antacid (calcium carbonate) 215 mg calcium (500 mg) Tablet,Chewable 500 mg PO Q6HR PRN (Reason: indegestion ) sumatriptan succinate tablet 50 mg PO Q12HR PRN (Reason: for migraine) acetaminophen-codeine 300-30 mg Tablet 1 - 2 tab PO Q8H PRN (Reason: Pain (Scale Score 7-10)) Qty: 20 0RF tramadol 25 mg Tablet 25 mg PO QAM Qty: 15 0RF Diet/Activity/Treatments Diet: Diet as Tolerated Activity: As tolerated, no restrictions. Visit Report/Discharge Packet Stand Alone Forms: Patient Portal/API, Stroke Signs & Symptoms
[2023-10-27] MEDS: IPRATROPIUM 0.5 MG/2.5 ML NEB INH (08:53)
[2023-10-27 09:06] VITALS: O2SAT 98
[2023-10-27] MEDS: NYSTATIN POWDER 15GM 1 APPLIC TOP (09:14)
[2023-10-27] MEDS: SODIUM CHLORIDE 0.9% FLUSH 10 ML IV (09:15)
[2023-10-27] MEDS: HEPARIN 5,000 UNIT/ML VIAL 5000 UNIT SUBCUT (09:16)
[2023-10-27] MEDS: DIVALPROEX DR 250 MG TABLET 500 MG PO (09:25)
[2023-10-27] MEDS: GABAPENTIN 100 MG CAPSULE 200 MG PO (09:27)
[2023-10-27] MEDS: MAGNESIUM OXIDE 400 MG TABLET PO (09:28)
[2023-10-27] MEDS: BUSPIRONE 5 MG TABLET 15 MG PO (09:29)
[2023-10-27] MEDS: ASPIRIN EC 325 MG TABLET PO (09:30)
[2023-10-27] MEDS: LORazepam 2 MG/ML INJ 1 MG IV (09:38)
--- NOTE | 2023-10-27 10:38 | CM.DPNOTE ---
DC Note Patient has been discharged, [facility] BLS arranged for steel pickler at 0930- face sheet, BLS form and POLST placed in chart for BLS crew. Call received from daughter in law Milena this morning P [phone]; discussed and confirmed plan as written above. KONSTANTIN states concern about patient's pain management and feels patient should be on a fentanyl patch. Daughter in law requests call back once this SNAKER can spak with medical staff. Reviewed discharge plan with Dr Landers and HIPOLITO Carpenter. According to HIPOLITO Carpenter, patient had a difficult night, agitated and anxious. Patient is denying pain and does not have a fentanyl patch. Dr Landers ordered ativan this AM to assist with sx of anxiety. Placed another call to KONSTANTIN Abbott and updated that patient has not been complaining of pain although has been anxious, agitated and resistant to care. Milena requests she be transferred into patient's room immediately with the intention of calming patient. Transferred this call into patient's room, alerted RN and SEED CLEANING MANAGER who were both at patient's bedside. Placed call to [facility] on [facility] P [phone], spoke with HIPOLITO Salas who will be admitting patient. Maritza agreeable to plan and requests RN2RN report go through main number and ask for Maritza. Updated HIPOLITO Carpenter. Faxed signed med list, Rx and DC report to [facility] on id F [phone]. DC Summary not signed at time of this note. Plan: Discharge back to [facility] on [facility] via BLS (with O2 as needed), [facility] start of care 1100, family agreeable to plan. NICHOLAS
== END 2023-10-27 09:54 | disposition hospice, home (50) | DRG 689 ==
LOC: ED 16:52 → AC 17:12
PROVIDERS: Admitting Provider Hospitalist; Emergency Provider Emergency Medicine; Referring Provider Emergency Medicine; Visit Provider Hospitalist
DX: N30.00 Acute cystitis without hematuria (principal); G93.41 Metabolic encephalopathy; J96.11 Chronic respiratory failure with hypoxia; J44.9 Chronic obstructive pulmonary disease, unspecified; F39 Unspecified mood [affective] disorder; E66.8 Other obesity; G43.909 Migraine, unspecified, not intractable, without status migrainosus; G40.909 Epilepsy, unspecified, not intractable, without status epilepticus; F41.9 Anxiety disorder, unspecified; F32.9 Major depressive disorder, single episode, unspecified; Z68.36 Body mass index [BMI] 36.0-36.9, adult; Z99.81 Dependence on supplemental oxygen
CPT/HCPCS: 36415; 70450; 70551; 71045; 71260; 74177; 80048; 80053; 80305; 81001; 82140; 82962; 83605; 84145; 85025; 87040; 87086; 87633; 93005; 94640; 94760; 96365; 97162; 97530; 99285; J0136; J0696; J1644; J2060; J7613; Q9967